=== PATIENT | female | born 1990 | race African-American/Black ===

== ENCOUNTER 2023-09-07 21:15 | Emergency (ER) | payer OTHER ==
--- NOTE | 2023-09-07 21:52 | ED ---
General Adult HPI - General Chief complaint: Chest Pain Stated complaint: Bi-Lateral Leg Swelling, Shortness of Breath Time Seen by Provider: 09/07/23 21:23 Source: patient, EMS Mode of arrival: EMS Limitations: no limitations - History of Present Illness Initial comments: This patient is a 33-year-old woman who arrives here to have evaluation from [facility]. The patient is complaining of bilateral leg swelling and shortness of breath. She does have history of previous cardiomyopathy and AICD placement. She is not able to well describe her cardiac history. The patient notes that things have been coming on over the past few da ys. She states that her legs are getting progressively more swollen and painful. The patient is able to lie flat. There is no productive cough. She has not had fevers or chills. No change in urination or bowel movements. Onset/Timin -: days(s) Location: left, right, lower extremity Quality: dull Consistency: constant Improves with: none Associated Symptoms: shortness of breath Treatments Prior to Arrival: none - Related Data Home Medications Medication Instructions Recorded Confirmed Acetaminophen Tab [Tylenol] 650 mg PO Q4H PRN 09/12/23 09/12/23 Albuterol Inhaler [Ventolin Hfa 1 - 2 puff INHALATION RT-Q4H PRN 09/12/23 09/12/23 Inhaler] Apixaban [Eliquis] 5 mg PO BID 09/12/23 09/12/23 Aspirin 81 mg PO DAILY 09/12/23 09/12/23 Atorvastatin Calcium [Lipitor] 40 mg PO HS 09/12/23 09/12/23 FLUoxetine HCL [PROzac] 20 mg PO DAILY 09/12/23 09/12/23 Fenofibrate [Lofibra] 54 mg PO HS 09/12/23 09/12/23 Ferrous Sulfate [Iron (65 MG 325 mg PO DAILY 09/12/23 09/12/23 Elemental)] Hydroxychloroquine Sulfate 200 mg PO BID 09/12/23 09/12/23 [Plaquenil] Levothyroxine Sodium [Synthroid] 25 mcg PO DAILY 09/12/23 09/12/23 Lidocaine 5% Oint [Xylocaine 5% 1 applic TOPICAL TID PRN 09/12/23 09/12/23 Oint] Lurasidone [Latuda] 40 mg PO DAILY 09/12/23 09/12/23 Magnesium Oxide [Magox 400] 400 mg PO BID 09/12/23 09/12/23 Melatonin 10 mg PO HS 09/12/23 09/12/23 Mirtazapine [Remeron] 15 mg PO HS 09/12/23 09/12/23 Multivitamins, Thera [Multivitamin 1 tab PO DAILY 09/12/23 09/12/23 (formulary)] Omeprazole 20 mg PO DAILY 09/12/23 09/12/23 allopurinoL 100 mg PO DAILY 09/12/23 09/12/23 busPIRone HCl [Buspar] 10 mg PO TID 09/12/23 09/12/23 guaiFENesin SYRUP 100MG/5ML 200 mg PO Q4H PRN 09/12/23 09/12/23 [Robitussin] ondansetron HCL [Zofran] 8 mg PO TID 09/12/23 09/12/23 Previous Rx's Medication Instructions Recorded Furosemide [Lasix] 40 mg PO DAILY 30 Days #30 tab 09/21/23 Metoprolol Succinate [Metoprolol 25 mg PO DAILY 30 Days #30 tab 09/21/23 Succinate ER] Nitroglycerin Sl Tabs [Nitrostat] 0.4 mg SUBLINGUAL Q5M PRN #25 tab 09/21/23 Allergies Allergy/AdvReac Type Severity Reaction Status Date / Time No Known Allergies Allergy Verified 09/12/23 20:10 Review of Systems ROS Statement: Those systems with pertinent positive or pertinent negative responses have been documented in the HPI. ROS Other: All systems not noted in ROS Statement are negative. Constitutional: Denies: fever, chills, weakness Respiratory: Reports: dyspnea. Denies: cough, wheezes, hemoptysis Cardiovascular: Reports: chest pain, dyspnea on exertion, edema. Denies: palpitations, orthopnea, syncope Gastrointestinal: Denies: abdominal pain, vomiting, diarrhea Genitourinary: Denies: dysuria, hematuria Musculoskeletal: Denies: back pain Skin: Denies: rash Neurological: Denies: headache, weakness, numbness Past Medical History Past Medical History: Hyperlipidemia, Renal Disease Additional Past Medical History / Comment(s): Gout, lupus, chf, uknown arrhythmia History of Any Multi-Drug Resistant Organisms: None Reported Past Surgical History: Section Past Psychological History: Anxiety, Bipolar Smoking Status: Current every day smoker Past Alcohol Use History: Abuse, Heavy Past Drug Use History: Cocaine General Exam Limitations: no limitations General appearance: alert, in no apparent distress Head exam: Present: atraumatic, normocephalic Eye exam: Present: normal appearance Neck exam: Present: normal inspection Respiratory exam: Present: normal lung sounds bilaterally. Absent: respiratory distress, wheezes, rales, rhonchi, stridor, accessory muscle use Cardiovascular Exam: Present: regular rate, normal rhythm, normal heart sounds. Absent: systolic murmur, diastolic murmur, rubs, gallop Extremities exam: Present: full ROM, normal capillary refill, pedal edema (There is bilateral edema above the knee), calf tenderness (Bilateral. Will ruthy Homans' sign). Absent: normal inspection Back exam: Present: normal inspection Neurological exam: Present: alert Skin exam: Present: warm, dry, intact, normal color. Absent: rash Course Vital Signs 09/07/23 09/07/23 09/07/23 21:21 23:00 23:30 Temperature 97.6 F Pulse Rate 105 H 96 93 Pulse Rate [ Jewelry Estimator ] Respiratory 22 18 16 Rate Blood Pressure 110/85 114/84 108/77 O2 Sat by Pulse 99 97 100 Oximetry 09/08/23 09/08/23 09/08/23 00:21 01:00 02:19 Temperature Pulse Rate 99 91 Pulse Rate [ 101 H Jewelry Estimator ] Respiratory 18 16 Rate Blood Pressure 107/86 110/82 O2 Sat by Pulse 100 100 Oximetry 09/08/23 09/08/23 09/08/23 03:33 04:53 06:37 Temperature Pulse Rate 96 91 95 Pulse Rate [ Jewelry Estimator ] Respiratory 16 16 18 Rate Blood Pressure 100/83 105/84 110/89 O2 Sat by Pulse 96 100 95 Oximetry EKG Findings - EKG Results: EKG: interpreted by ERMD, sinus rhythm, normal axis EKG shows: tachycardia (Rate 107 bpm) - Blocks, [place], Hypertrophy, ST Abn: QRS axis and voltage: low voltage (<0.5 MV total QRS and <1.0 MV in each precordial lead) - [place], Pacemaker, Normal: Myocardial infarction: anterior [place] (old age or indeterminate) Medical Decision Making - Medical Decision Making Patient had chest x-ray that I interpreted as negative for acute infiltrate, pneumothorax. There is cardiomegaly and probable mild CHF. There is AICD present. Patient has had duplex Doppler of the lower extremities that I interpreted as negative for acute DVT. Was pt. sent in by a medical professional or institution (, FAUSTO, SERVICE CENTER MANAGER, urgent care, hospital, or [place] health care facility...) When possible be specific @ -Yes sent from [facility] Did you speak to anyone other than the patient for history (EMS, parent, family, police, friend...)? What history was obtained from this source @ -[No] Did you review nursing and triage notes (agree or disagree)? Why? @ -[I reviewed and agree with nursing and triage notes] Were old charts reviewed (outside hosp., previous admission, EMS record, old EKG, old radiological studies, urgent care reports/EKG's, [place] health care facility records)? Report findings @ -[Transfer papers were reviewed] Differential Diagnosis (chest pain, altered mental status, abdominal pain women, abdominal pain men, vaginal bleeding, weakness, fever, dyspnea, syncope, headache, dizziness, GI bleed, back pain, seizure, CVA, palpatations, mental health, musculoskeletal)? @ -[Differential Chest Pain: Stable Angina, Unstable Angina, STEMI, NSTEMI Aortic Dissection, Pneumothorax, Musculoskeletal, Esophageal Spasm GERD, Cholecystitis, Pancreatitis, Zoster, this is not meant to be an all-inclusive list. EKG interpreted by me (3pts min.). @ -[I interpreted as above] X-rays interpreted by me (1pt min.). @ -[I interpreted as above CT interpreted by me (1pt min.). @ -[None done] U/S interpreted by me (1pt. min.). @ -[I interpreted as above What testing was considered but not performed or refused? (CT, X-rays, U/S, labs)? Why? @ -[None] What meds were considered but not given or refused? Why? @ -[None] Did you discuss the management of the patient with other professionals (professionals i.e. FAUSTO Milner, SERVICE CENTER MANAGER, lab, RT, psych nurse, social work program coordinator, supervisor hot dip tinning, teacher, correctional officer lieutenant, case sealer)? Give summary @ -[No] Was smoking cessation discussed for >3mins.? @ -[No] Was critical care preformed (if so, how long)? @ -[No] Were there social determinants of health that impacted care today? How? (Homelessness, low income, unemployed, alcoholism, drug addiction, transportation, low edu. Level, literacy, decrease access to med. care, chcf, rehab)? @ -[No] Was there de-escalation of care discussed even if they declined (Discuss DNR or withdrawal of care, Hospice)? DNR status @ -[No] What co-morbidities impacted this encounter? (DM, HTN, Smoking, COPD, CAD, Cancer, CVA, ARF, Chemo, Hep., AIDS, mental health diagnosis, sleep apnea, morbid obesity)? @ -[Hypertension, history of congestive heart failure, history of cardiomyopathy Was patient admitted / discharged? Hospital course, mention meds given and route, prescriptions, significant lab abnormalities, going to OR and other pertinent info. @ -[Patient is a 33-year-old woman with element of congestive heart failure. The patient is feeling better with treatment here and at this point stable for returning to skilled care facility. Discussed return parameters Undiagnosed new problem with uncertain prognosis? @ -[No] Drug Therapy requiring intensive monitoring for toxicity (Heparin, Nitro, Insulin, Cardizem)? @ -[No] Were any procedures done? @ -[No] Diagnosis/symptom? @ -[Acute exacerbation of congestive heart failure Acute, or Chronic, or Acute on Chronic? @ -[ Uncomplicated (without systemic symptoms) or Complicated (systemic symptoms)? @ -[default] Side effects of treatment? @ -[No] Exacerbation, Progression, or Severe Exacerbation? @ -[Exacerbation Poses a threat to life or bodily function? How? (Chest pain, [place], [place], pneumonia, PE, COPD, DKA, ARF, appy, cholecystitis, CVA, Diverticulitis, Homicidal, Suicidal, threat to staff... and all critical care pts) @ -[No] - Lab Data Result diagrams: 09/07/23 21:59 09/07/23 21:59 Lab Results 09/07/23 09/07/23 09/07/23 Range/Units 21:59 21:59 21:59 WBC 9.3 (3.8-10.6) k/uL RBC 4.95 (3.80-5.40) m/uL Hgb 11.7 (11.4-16.0) gm/dL Hct 41.6 (34.0-46.0) % MCV 84.2 (80.0-100.0) fL MCH 23.7 L (25.0-35.0) pg MCHC 28.2 L (31.0-37.0) g/dL RDW 20.5 H (11.5-15.5) % Plt Count 184 (150-450) k/uL MPV 9.5 Neutrophils % 60 % Lymphocytes % 31 % Monocytes % 4 % Eosinophils % 2 % Basophils % 1 % Neutrophils # 5.6 (1.3-7.7) k/uL Lymphocytes # 2.9 (1.0-4.8) k/uL Monocytes # 0.4 (0-1.0) k/uL Eosinophils # 0.2 (0-0.7) k/uL Basophils # 0.1 (0-0.2) k/uL Hypochromasia Marked Poikilocytosis Slight Anisocytosis Moderate Microcytosis Slight PT 12.9 H (10.0-12.5) sec INR 1.2 H (<1.2) APTT 24.9 (22.0-30.0) sec D-Dimer 1.25 H (<0.60) mg/L FEU Sodium 138 (137-145) mmol/L Potassium 4.6 (3.5-5.1) mmol/L Chloride 111 H (98-107) mmol/L Carbon Dioxide 18 L (22-30) mmol/L Anion Gap 9 mmol/L BUN 45 H (7-17) mg/dL Creatinine 1.32 H (0.52-1.04) mg/dL Est GFR (CKD-EPI)AfAm 61 (>60 ml/min/1.73 sqM) Est GFR (CKD-EPI)NonAf 53 (>60 ml/min/1.73 sqM) Glucose 136 H (74-99) mg/dL Plasma Lactic Acid Aristeo (0.7-2.0) mmol/L Calcium 8.0 L (8.4-10.2) mg/dL Magnesium 1.6 (1.6-2.3) mg/dL Total Bilirubin 0.6 (0.2-1.3) mg/dL AST 36 (14-36) U/L ALT 17 (4-34) U/L Alkaline Phosphatase 105 (38-126) U/L Troponin I (0.000-0.034) ng/mL NT-Pro-B Natriuret Pep 7760 pg/mL Total Protein 6.2 L (6.3-8.2) g/dL Albumin 2.4 L (3.5-5.0) g/dL Urine HCG, Qual (Not Detectd) 09/07/23 09/07/23 09/08/23 Range/Units 21:59 21:59 00:35 WBC (3.8-10.6) k/uL RBC (3.80-5.40) m/uL Hgb (11.4-16.0) gm/dL Hct (34.0-46.0) % MCV (80.0-100.0) fL MCH (25.0-35.0) pg MCHC (31.0-37.0) g/dL RDW (11.5-15.5) % Plt Count (150-450) k/uL MPV Neutrophils % % Lymphocytes % % Monocytes % % Eosinophils % % Basophils % % Neutrophils # (1.3-7.7) k/uL Lymphocytes # (1.0-4.8) k/uL Monocytes # (0-1.0) k/uL Eosinophils # (0-0.7) k/uL Basophils # (0-0.2) k/uL Hypochromasia Poikilocytosis Anisocytosis Microcytosis PT (10.0-12.5) sec INR (<1.2) APTT (22.0-30.0) sec D-Dimer (<0.60) mg/L FEU Sodium (137-145) mmol/L Potassium (3.5-5.1) mmol/L Chloride (98-107) mmol/L Carbon Dioxide (22-30) mmol/L Anion Gap mmol/L BUN (7-17) mg/dL Creatinine (0.52-1.04) mg/dL Est GFR (CKD-EPI)AfAm (>60 ml/min/1.73 sqM) Est GFR (CKD-EPI)NonAf (>60 ml/min/1.73 sqM) Glucose (74-99) mg/dL Plasma Lactic Acid Aristeo 1.4 (0.7-2.0) mmol/L Calcium (8.4-10.2) mg/dL Magnesium (1.6-2.3) mg/dL Total Bilirubin (0.2-1.3) mg/dL AST (14-36) U/L ALT (4-34) U/L Alkaline Phosphatase (38-126) U/L Troponin I 0.013 (0.000-0.034) ng/mL NT-Pro-B Natriuret Pep pg/mL Total Protein (6.3-8.2) g/dL Albumin (3.5-5.0) g/dL Urine HCG, Qual Not Detected (Not Detectd) Disposition Clinical Impression: Congestive heart failure Disposition: HOME SELF-CARE Condition: Good Instructions (If sedation given, give patient instructions): Heart Failure (ER) Is patient prescribed a controlled substance at d/c from ED?: No Referrals: None,Stated [Primary Care Provider] - 1-2 days
[2023-09-07 22:08] LABS: Anisocytosis Moderate; Basophils # (A) 0.1 k/uL (0-0.2); Basophils % (A) 1 %; Eosinophils # (A) 0.2 k/uL (0-0.7); Eosinophils % (A) 2 %; HCT 41.6 % (34.0-46.0); HGB 11.7 gm/dL (11.4-16.0); Hypochromasia Marked; Lymphocytes # (A) 2.9 k/uL (1.0-4.8); Lymphocytes % (A) 31 %; MCH 23.7 pg (25.0-35.0); MCHC 28.2 g/dL (31.0-37.0); MCV 84.2 fL (80.0-100.0); Mean Platelet Volume 9.5; Microcytosis Slight; Monocytes # (A) 0.4 k/uL (0-1.0); Monocytes % (A) 4 %; Neutrophils # (A) 5.6 k/uL (1.3-7.7); Neutrophils % (A) 60 %; Platelet Count 184 k/uL (150-450); Poikilocytosis Slight; RBC 4.95 m/uL (3.80-5.40); RDW 20.5 % (11.5-15.5); WBC 9.3 k/uL (3.8-10.6)
[2023-09-07 22:18] LABS: ALT 17 U/L (4-34); AST 36 U/L (14-36); African American GFR (CKD) 61 (>60 ml/min/1.73 sqM); Albumin 2.4 g/dL (3.5-5.0); Alkaline Phosphatase 105 U/L (38-126); Anion Gap 9 mmol/L; Blood Urea Nitrogen 45 mg/dL (7-17); Carbon Dioxide 18 mmol/L (22-30); Chloride 111 mmol/L (98-107); Glucose 136 mg/dL (74-99); Magnesium 1.6 mg/dL (1.6-2.3); Non-African American GFR(CKD) 53 (>60 ml/min/1.73 sqM); Potassium 4.6 mmol/L (3.5-5.1); Sodium 138 mmol/L (137-145); Total Bilirubin 0.6 mg/dL (0.2-1.3); Total Protein 6.2 g/dL (6.3-8.2)
[2023-09-07 22:21] LABS: INR 1.2 (<1.2)
[2023-09-07 22:22] LABS: Partial Thromboplastin Time 24.9 sec (22.0-30.0); Prothrombin Time 12.9 sec (10.0-12.5)
[2023-09-07 22:27] LABS: NT-Pro-B-Type Natriuretic Pept 7760 pg/mL
[2023-09-07 22:40] VITALS: TEMP 97.6
[2023-09-07] MEDS: KETOROLAC 15 MG/ML 1 ML VIAL IVP STA (22:49)
--- NOTE | 2023-09-07 22:58 | XR ---
EXAM: XR Chest, 2 Views CLINICAL HISTORY: ITS.REASON XR Reason: difficulty breathing TECHNIQUE: Frontal and lateral views of the chest. COMPARISON: No relevant prior studies available. FINDINGS: Lungs: Mild right basilar opacities. Pleural space: Small pleural effusions. No pneumothorax. Heart: Cardiomegaly. Vascular congestion. Bones/joints: No acute fracture. No dislocation. Tubes, lines and devices: Left lateral chest wall battery pack with lead extending into the midline anterior chest wall. IMPRESSION: 1. Cardiomegaly and vascular congestion, possibly mild edema. 2. Small pleural effusions. 3. Mild right basilar opacities, most likely atelectasis.
[2023-09-07] MEDS: FUROSEMIDE 10 MG/ML 4 ML VIAL IV STA (23:35)
--- NOTE | 2023-09-07 23:50 | US ---
EXAM: US Duplex Bilateral Lower Extremities Veins CLINICAL HISTORY: ITS.REASON US Reason: Leg pain, possible PE TECHNIQUE: Real-time duplex ultrasound scan of the bilateral lower extremity veins integrating B-mode two-dimensional vascular structure, Doppler spectral analysis, color flow Doppler imaging and compression. COMPARISON: No relevant prior studies available. FINDINGS: Right deep veins: Unremarkable. No DVT in the right common femoral, femoral, proximal deep femoral or popliteal veins. The veins demonstrate normal color flow, are normally compressible, with normal phasic flow and/or augmentation response. Right superficial veins: Unremarkable. No thrombus in the visualized right great saphenous vein. Left deep veins: Unremarkable. No DVT in the left common femoral, femoral, proximal deep femoral or popliteal veins. The veins demonstrate normal color flow, are normally compressible, with normal phasic flow and/or augmentation response. Left superficial veins: Unremarkable. No thrombus in the visualized left great saphenous vein. Soft tissues: Bilateral soft tissue edema. IMPRESSION: 1. No acute DVT. Bilateral soft tissue edema.
--- NOTE | 2023-09-08 01:43 | CT ---
EXAM: CT Angiography Chest With Intravenous Contrast CLINICAL HISTORY: ITS.REASON CT Reason: chest pain, possible PE TECHNIQUE: Axial computed tomographic angiography images of the chest with intravenous contrast. CTDI is 30.6 mGy and DLP is 345 mGy-cm. This CT exam was performed using one or more of the following dose reduction techniques: automated exposure control, adjustment of the mA and/or kV according to patient size, and/or use of iterative reconstruction technique. MIP reconstructed images were created and reviewed. COMPARISON: No relevant prior studies available. FINDINGS: Limitations: Motion artifact. Pulmonary arteries: Adequate pulmonary artery opacification. Enlarged main pulmonary artery consistent with pulmonary arterial hypertension. No evidence of pulmonary embolism. Aorta: No acute findings. No aortic aneurysm. Lungs: Bilateral septal thickening and alveolar ground-glass lung attenuation. No consolidation. Pleural space: Small pleural effusions. No pneumothorax. Heart: Cardiomegaly. Pericardial effusion measuring 13 mm. No RV strain. No coronary artery atherosclerosis. Bones/joints: No acute fracture. No dislocation. Soft tissues: Anasarca. Lymph nodes: Unremarkable. No adenopathy. Tubes, lines and devices: Generator device/battery pack implanted in the left lateral abdominal wall with lead extending into the midline presternal soft tissues. IMPRESSION: 1. No evidence of pulmonary embolism. 2. Cardiomegaly and 13 mm pericardial effusion. 3. Pulmonary edema and small pleural effusions. 4. Reflux of contrast into the hepatic veins consistent with elevated right heart pressure. 5. Anasarca.
[2023-09-08 07:07] VITALS: BP 110/89; PULSE 95; RESP 18
== END 2023-09-08 06:57 | disposition home or self-care (01) ==
LOC: EC 21:15
DX: I50.9 Heart failure, unspecified (principal); I25.2 Old myocardial infarction; F17.200 Nicotine dependence, unspecified, uncomplicated; F14.90 Cocaine use, unspecified, uncomplicated
CPT/HCPCS: 36415; 93005; 85379; 83880; 80053; 83605; 83735; 84484; 85025; 85610; 85730; 81025; 71046; 93970; 71275; 99285; 96374; 96375; J1940; J1885; Q9967

== ENCOUNTER 2023-09-12 17:55 | Inpatient (IN) | payer OTHER ==
--- NOTE | 2023-09-12 19:07 | ED ---
General Adult HPI - General Chief complaint: Chest Pain Stated complaint: Chest pain Time Seen by Provider: 09/12/23 18:40 Source: patient, RN notes reviewed, old records reviewed Mode of arrival: EMS Limitations: no limitations - History of Present Illness Initial comments: This is a 33-year-old female who presents to the emergency department from [facility] for alcohol and cocaine abuse. Patient comes in today because for the last 2 days she has been having some chest pain some shortness of breath and complains of epigastric abdominal pain occasionally. Patient states the pain does come and go but has been more persistent today and since she has a history of congestive heart failure and she had a pericardial effusion on her last visit she came back to the emergency department. Patient denies any fever or chills. Patient denies any vomiting or diarrhea. - Related Data Home Medications Medication Instructions Recorded Confirmed Acetaminophen Tab [Tylenol] 650 mg PO Q4H PRN 09/12/23 09/12/23 Albuterol Inhaler [Ventolin Hfa 1 - 2 puff INHALATION RT-Q4H PRN 09/12/23 09/12/23 Inhaler] Apixaban [Eliquis] 5 mg PO BID 09/12/23 09/12/23 Aspirin 81 mg PO DAILY 09/12/23 09/12/23 Atorvastatin Calcium [Lipitor] 40 mg PO HS 09/12/23 09/12/23 FLUoxetine HCL [PROzac] 20 mg PO DAILY 09/12/23 09/12/23 Fenofibrate [Lofibra] 54 mg PO HS 09/12/23 09/12/23 Ferrous Sulfate [Feosol] 325 mg PO DAILY 09/12/23 09/12/23 Furosemide [Lasix] 40 mg PO DAILY 09/12/23 09/12/23 Hydroxychloroquine Sulfate 200 mg PO BID 09/12/23 09/12/23 [Plaquenil] Levothyroxine Sodium [Synthroid] 25 mcg PO DAILY 09/12/23 09/12/23 Lidocaine 5% Oint [Xylocaine 5% 1 applic TOPICAL TID PRN 09/12/23 09/12/23 Oint] Lurasidone [Latuda] 40 mg PO DAILY 09/12/23 09/12/23 Magnesium Oxide [Magox 400] 400 mg PO BID 09/12/23 09/12/23 Melatonin 10 mg PO HS 09/12/23 09/12/23 Mirtazapine [Remeron] 15 mg PO HS 09/12/23 09/12/23 Multivitamins, Thera [Multivitamin 1 tab PO DAILY 09/12/23 09/12/23 (formulary)] Omeprazole 20 mg PO DAILY 09/12/23 09/12/23 allopurinoL 100 mg PO DAILY 09/12/23 09/12/23 busPIRone HCl [Buspar] 10 mg PO TID 09/12/23 09/12/23 guaiFENesin SYRUP 100MG/5ML 200 mg PO Q4H PRN 09/12/23 09/12/23 [Robitussin] lisinopriL [Prinivil] 10 mg PO DAILY 09/12/23 09/12/23 ondansetron HCL [Zofran] 8 mg PO TID 09/12/23 09/12/23 Allergies Allergy/AdvReac Type Severity Reaction Status Date / Time No Known Allergies Allergy Verified 09/12/23 20:10 Review of Systems ROS Statement: Those systems with pertinent positive or pertinent negative responses have been documented in the HPI. ROS Other: All systems not noted in ROS Statement are negative. Past Medical History Past Medical History: Hyperlipidemia, Renal Disease Additional Past Medical History / Comment(s): Gout, lupus, chf, uknown arrhythmi a History of Any Multi-Drug Resistant Organisms: None Reported Past Surgical History: Section, Pacemaker Past Psychological History: Anxiety, Bipolar Smoking Status: Current every day smoker Past Alcohol Use History: Abuse, Heavy Past Drug Use History: Cocaine General Exam - General Exam Comments Initial Comments: GENERAL: Patient is well-developed and well-nourished. Patient is nontoxic and well- hydrated and is in mild distress. ENT: Neck is soft and supple. No significant lymphadenopathy is noted. Oropharynx is clear. Moist mucous membranes. Neck has full range of motion without eliciting any pain. EYES: The sclera were anicteric and conjunctiva were pink and moist. Extraocular movements were intact and pupils were equal round and reactive to light. Eyelids were unremarkable. PULMONARY: Unlabored respirations. Patient has decreased breath sounds in the bases CARDIOVASCULAR: There is a regular rate and rhythm without any murmurs gallops or rubs. ABDOMEN: Soft and nontender with normal bowel sounds. SKIN: Skin is clear with no lesions or rashes and otherwise unremarkable. NEUROLOGIC: Patient is alert and oriented x3. Cranial nerves II through XII are grossly intact. Motor and sensory are also intact. Normal speech, volume and content. Symmetrical smile. MUSCULOSKELETAL: Normal extremities with adequate strength and full range of motion. Patient has 2+ edema bilaterally on her legs LYMPHATICS: No significant lymphadenopathy is noted PSYCHIATRIC: Normal psychiatric evaluation. Limitations: no limitations Course Vital Signs 09/12/23 09/12/23 17:58 20:21 Temperature 98 F 98.2 F Pulse Rate 118 H 112 H Respiratory 18 16 Rate Blood Pressure 113/82 121/88 O2 Sat by Pulse 98 99 Oximetry Medical Decision Making - Medical Decision Making EKG is interpreted by myself. EKG shows a sinus tachycardia at 113 bpm OR interval 154 QRS is 81 QT interval is 326 QTc is 393. Patient's EKG shows no ST segment elevation or depression. Was pt. sent in by a medical professional or institution (, PA, MEDICAID ANALYST, urgent care, hospital, or assisted...) When possible be specific @ -Patient was sent in by [facility] Did you speak to anyone other than the patient for history (EMS, parent, family, police, friend...)? What history was obtained from this source @ -No Did you review nursing and triage notes (agree or disagree)? Why? @ -I reviewed and agree with nursing and triage notes Were old charts reviewed (outside hosp., previous admission, EMS record, old EKG, old radiological studies, urgent care reports/EKG's, assisted records)? Report findings @ -Patient was in the emergency department a few days ago I reviewed the CTA as well as all the lab work and chest x-ray. Differential Diagnosis (chest pain, altered mental status, abdominal pain women, abdominal pain men, vaginal bleeding, weakness, fever, dyspnea, syncope, headache, dizziness, GI bleed, back pain, seizure, CVA, palpatations, mental health, musculoskeletal)? @ -MDM differential Stable Angina, Unstable Angina, STEMI, NSTEMI Aortic Dissection, Pneumothorax, Musculoskeletal, Esophageal Spasm GERD, Cholecystitis, Pancreatitis, Zoster, this is not meant to be an all-inclusive list. EKG interpreted by me (3pts min.). @ -As above X-rays interpreted by me (1pt min.). @ -None done CT interpreted by me (1pt min.). @ -None done U/S interpreted by me (1pt. min.). @ -None done What testing was considered but not performed or refused? (CT, X-rays, U/S, labs)? Why? @ -None What meds were considered but not given or refused? Why? @ -None Did you discuss the management of the patient with other professionals (professionals i.e. , PA, MEDICAID ANALYST, lab, RT, psych nurse, high school social studies tutor, animal cytologist, teacher, accounting officer, pillowcase folder)? Give summary @ -I spoke with [place] emergency department physicians and they agreed to admit the patient Was smoking cessation discussed for >3mins.? @ -No Was critical care preformed (if so, how long)? @ -No Were there social determinants of health that impacted care today? How? (Homelessness, low income, unemployed, alcoholism, drug addiction, transportation, low edu. Level, literacy, decrease access to med. care, intermediate, rehab)? @ -No Was there de-escalation of care discussed even if they declined (Discuss DNR or withdrawal of care, Hospice)? DNR status @ -No What co-morbidities impacted this encounter? (DM, HTN, Smoking, COPD, CAD, Cancer, CVA, ARF, Chemo, Hep., AIDS, mental health diagnosis, sleep apnea, morbid obesity)? @ -None Was patient admitted / discharged? Hospital course, mention meds given and route, prescriptions, significant lab abnormalities, going to OR and other pertinent info. @ -Patient's lab work came back magnesium was slightly low troponin was normal. Patient had elevated D-dimer but I opted not to do a CT scan because she had one a few days ago. [facility] physician agreed admit the patient admit the patient I ordered an echo and consult cardiology Undiagnosed new problem with uncertain prognosis? @ -No Drug Therapy requiring intensive monitoring for toxicity (Heparin, Nitro, Insulin, Cardizem)? @ -No Were any procedures done? @ -No Diagnosis/symptom? @ -Chest pain Acute, or Chronic, or Acute on Chronic? @ -Acute Uncomplicated (without systemic symptoms) or Complicated (systemic symptoms)? @ -Complicated Side effects of treatment? @ -No Exacerbation, Progression, or Severe Exacerbation? @ -No Poses a threat to life or bodily function? How? (Chest pain, USA, ID, pneumonia, PE, COPD, DKA, ARF, appy, cholecystitis, CVA, Diverticulitis, Homicidal, Suicidal, threat to staff... and all critical care pts) @ -Yes this could lead to an ID and endorgan dysfunction Diagnosis/symptom? @ -Hypomagnesemia Acute, or Chronic, or Acute on Chronic? @ -Acute Uncomplicated (without systemic symptoms) or Complicated (systemic symptoms)? @ -Uncomplicated Side effects of treatment? @ -None Exacerbation, Progression, or Severe Exacerbation] @ -No Poses a threat to life or bodily function? @ -No - Lab Data Result diagrams: 09/12/23 18:57 09/12/23 20:21 Lab Results 09/12/23 09/12/23 09/12/23 Range/Units 18:57 18:57 18:57 WBC 11.4 H (3.8-10.6) k/uL RBC 5.56 H (3.80-5.40) m/uL Hgb 13.2 (11.4-16.0) gm/dL Hct 47.4 H (34.0-46.0) % MCV 85.3 (80.0-100.0) fL MCH 23.8 L (25.0-35.0) pg MCHC 27.9 L (31.0-37.0) g/dL RDW 20.8 H (11.5-15.5) % Plt Count 170 (150-450) k/uL MPV 10.3 Neutrophils % 68 % Lymphocytes % 22 % Monocytes % 5 % Eosinophils % 2 % Basophils % 1 % Neutrophils # 7.8 H (1.3-7.7) k/uL Lymphocytes # 2.5 (1.0-4.8) k/uL Monocytes # 0.6 (0-1.0) k/uL Eosinophils # 0.2 (0-0.7) k/uL Basophils # 0.1 (0-0.2) k/uL Hypochromasia Marked Poikilocytosis Slight Anisocytosis Moderate Microcytosis Slight PT 12.7 H (10.0-12.5) sec INR 1.2 H (<1.2) APTT 22.9 (22.0-30.0) sec D-Dimer 1.46 H (<0.60) mg/L FEU Sodium (137-145) mmol/L Potassium (3.5-5.1) mmol/L Chloride (98-107) mmol/L Carbon Dioxide (22-30) mmol/L Anion Gap mmol/L BUN (7-17) mg/dL Creatinine (0.52-1.04) mg/dL Est GFR (CKD-EPI)AfAm (>60 ml/min/1.73 sqM) Est GFR (CKD-EPI)NonAf (>60 ml/min/1.73 sqM) Glucose (74-99) mg/dL Calcium (8.4-10.2) mg/dL Magnesium (1.6-2.3) mg/dL Total Bilirubin (0.2-1.3) mg/dL AST (14-36) U/L ALT (4-34) U/L Alkaline Phosphatase (38-126) U/L Troponin I (0.000-0.034) ng/mL Total Protein (6.3-8.2) g/dL Albumin (3.5-5.0) g/dL Lipase (23-300) U/L 09/12/23 09/12/23 Range/Units 20:21 20:21 WBC (3.8-10.6) k/uL RBC (3.80-5.40) m/uL Hgb (11.4-16.0) gm/dL Hct (34.0-46.0) % MCV (80.0-100.0) fL MCH (25.0-35.0) pg MCHC (31.0-37.0) g/dL RDW (11.5-15.5) % Plt Count (150-450) k/uL MPV Neutrophils % % Lymphocytes % % Monocytes % % Eosinophils % % Basophils % % Neutrophils # (1.3-7.7) k/uL Lymphocytes # (1.0-4.8) k/uL Monocytes # (0-1.0) k/uL Eosinophils # (0-0.7) k/uL Basophils # (0-0.2) k/uL Hypochromasia Poikilocytosis Anisocytosis Microcytosis PT (10.0-12.5) sec INR (<1.2) APTT (22.0-30.0) sec D-Dimer (<0.60) mg/L FEU Sodium 136 L (137-145) mmol/L Potassium 4.6 (3.5-5.1) mmol/L Chloride 112 H (98-107) mmol/L Carbon Dioxide 17 L (22-30) mmol/L Anion Gap 7 mmol/L BUN 37 H (7-17) mg/dL Creatinine 1.26 H (0.52-1.04) mg/dL Est GFR (CKD-EPI)AfAm 65 (>60 ml/min/1.73 sqM) Est GFR (CKD-EPI)NonAf 56 (>60 ml/min/1.73 sqM) Glucose 118 H (74-99) mg/dL Calcium 8.3 L (8.4-10.2) mg/dL Magnesium 1.5 L (1.6-2.3) mg/dL Total Bilirubin 0.9 (0.2-1.3) mg/dL AST 42 H (14-36) U/L ALT 19 (4-34) U/L Alkaline Phosphatase 101 (38-126) U/L Troponin I 0.015 (0.000-0.034) ng/mL Total Protein 6.2 L (6.3-8.2) g/dL Albumin 2.4 L (3.5-5.0) g/dL Lipase 130 (23-300) U/L Disposition Clinical Impression: Chest pain, Hypomagnesemia Disposition: ADMITTED IP TO THIS [facility] Referrals: None,Stated [Primary Care Provider] - 1-2 days Time of Disposition: 21:24
[2023-09-12 19:15] LABS: Anisocytosis Moderate; Basophils # (A) 0.1 k/uL (0-0.2); Basophils % (A) 1 %; Eosinophils # (A) 0.2 k/uL (0-0.7); Eosinophils % (A) 2 %; HCT 47.4 % (34.0-46.0); HGB 13.2 gm/dL (11.4-16.0); Hypochromasia Marked; Lymphocytes # (A) 2.5 k/uL (1.0-4.8); Lymphocytes % (A) 22 %; MCH 23.8 pg (25.0-35.0); MCHC 27.9 g/dL (31.0-37.0); MCV 85.3 fL (80.0-100.0); Mean Platelet Volume 10.3; Microcytosis Slight; Monocytes # (A) 0.6 k/uL (0-1.0); Monocytes % (A) 5 %; Neutrophils # (A) 7.8 k/uL (1.3-7.7); Neutrophils % (A) 68 %; Platelet Count 170 k/uL (150-450); Poikilocytosis Slight; RBC 5.56 m/uL (3.80-5.40); RDW 20.8 % (11.5-15.5); WBC 11.4 k/uL (3.8-10.6)
[2023-09-12 19:26] LABS: INR 1.2 (<1.2); Partial Thromboplastin Time 22.9 sec (22.0-30.0); Prothrombin Time 12.7 sec (10.0-12.5)
[2023-09-12 20:42] LABS: ALT 19 U/L (4-34); African American GFR (CKD) 65 (>60 ml/min/1.73 sqM); Albumin 2.4 g/dL (3.5-5.0); Anion Gap 7 mmol/L; Blood Urea Nitrogen 37 mg/dL (7-17); Calcium 8.3 mg/dL (8.4-10.2); Carbon Dioxide 17 mmol/L (22-30); Chloride 112 mmol/L (98-107); Glucose 118 mg/dL (74-99); Lipase 130 U/L (23-300); Non-African American GFR(CKD) 56 (>60 ml/min/1.73 sqM); Sodium 136 mmol/L (137-145); Total Bilirubin 0.9 mg/dL (0.2-1.3); Total Protein 6.2 g/dL (6.3-8.2)
[2023-09-12 20:47] LABS: AST 42 U/L (14-36); Alkaline Phosphatase 101 U/L (38-126); Potassium 4.6 mmol/L (3.5-5.1)
[2023-09-12 20:48] LABS: Magnesium 1.5 mg/dL (1.6-2.3)
[2023-09-12] MEDS ORDERED: NITROGLYCERIN SL TABS 0.4 MG TAB SUBLINGUAL PRN (21:24)
--- NOTE | 2023-09-12 22:10 | XR ---
EXAMINATION TYPE: XR chest 2V DATE OF EXAM: 09/12/2023 COMPARISON: 09/07/2023 HISTORY: Chest pain TECHNIQUE: Frontal and lateral views of the chest are obtained. FINDINGS: There is marked cardiomegaly and a defibrillator device.. The lungs are clear. There is no pleural effusion or pneumothorax. Pulmonary vasculature does not appear congested. IMPRESSION: 1. Stable marked cardiomegaly. 2. No acute cardiopulmonary disease.
[2023-09-12] MEDS: MAGNESIUM SULFATE-D5W PMX 1 GM in DEXTROSE/WATER 1 100ML.BAG IVPB ONE (22:34)
[2023-09-12] MEDS: traMADol 50 MG TAB PO STA (22:34)
[2023-09-13] MEDS: NITROGLYCERIN OINT 1 INCH/GM PACKET TOPICAL SCH (00:09)
--- NOTE | 2023-09-13 00:57 | P.HPIM ---
History of Present Illness H&P Date: 09/12/23 Patient is a 33-year-old female with a PMH of CHF (unknown type), alcohol abuse, SLE, polysubstance abuse, A-fib on Eliquis, hypertension, hyperlipidemia, asthma, hypothyroidism, currently experiencing homelessness who was sent to the emergency room from [place] where the patient had presented for alcohol and cocaine abuse. The patient has been staying at [facility] since 08/20 and had also presented to the emergency room on 09/06 due to lower extremity swelling and shortness of breath. She was initially discharged back to [place] but now returns due to persistent shortness of breath. Reports following with multiple facilities but notes that she has had a difficult time following up with her physicians due to her currently being homeless. Reports intermittent substernal chest pain, somewhat pleuritic with some tenderness, occurring over the last 2 to 3 days, nonradiating, with no alleviating or exacerbating features, 7 out of 10 at maximal intensity. Does report lower extremity swelling with some orthopnea. Also reports mild diffuse abdominal discomfort intermittently over the past several weeks. Denies fever, chills, cough. Chest x-ray in the emergency room revealed marked cardiomegaly with no acute abnormalities with EKG showing sinus tachycardia at 113 bpm with diffuse T wave flattening as reviewed by me. Laboratory evaluation was remarkable for leukocytosis of 11.4, D-dimer 1.46, BUN 37, creatinine 1.26, glucose 118, calcium 8.3, magnesium 1.5, AST 42, ALT 19, troponin 0.015, proBNP 9100. ED documentation reviewed and case discussed with ED provider. Review of systems: Pertinent positives and negatives as discussed in HPI, a complete review of sys tems was performed and all other systems are negative. Physical examination: Vital signs reviewed General: non toxic, no distress, appears older than stated age age, obese Derm: no unusual rashes/lesions, warm Head: atraumatic, normocephalic, symmetric Eyes: EOMI, no lid lag, anicteric sclera, pupils equal round reactive to light ENT: Nose and ears atraumatic Neck: No cervical lymphadenopathy, trachea midline, supple Mouth: no lip lesion, mucus membranes moist Cardiovascular: S1S2 reg, no murmur, positive dorsalis pedis pulse bilateral, 2+ bilateral lower extremity pitting edema Lungs: CTA bilateral, no rhonchi, no rales, no accessory muscle use Abdominal: soft, nontender to palpation, no guarding Ext: muscle strength 5 out of 5 in all 4 extremities grossly, no gross muscle atrophy, no contractures, Neuro: CN II-XI grossly intact, no gross focal neuro deficits Psych: Alert, oriented, appropriate affect Assessment: Chest pain, rule out ACS vs PE Acute CHF exacerbation Kidney disease acute versus chronic Hypomagnesemia Leukocytosis, suspect due to acute stressor with no signs of active infection at this time Chronic conditions: A-fib, hypertension, hyperlipidemia, hypothyroidism, alcohol abuse, SLE Imaging: Chest x-ray in the emergency room revealed marked cardiomegaly with no acute abnormalities with EKG showing sinus tachycardia at 113 bpm with diffuse T wave flattening as reviewed by me. Data Review: Laboratory evaluation was remarkable for leukocytosis of 11.4, D-dimer 1.46, BUN 37, creatinine 1.26, glucose 118, calcium 8.3, magnesium 1.5, AST 42, ALT 19, troponin 0.015, proBNP 9100. Plan: Cardiology consulted Cardiac monitoring Obtain echocardiogram Initiate Lasix 40 mg IV every 12 hourly Intake and output Daily weights Monitor BMP Obtain VQ scan to rule out PE Replace magnesium and monitor Resume home medications including Eliquis DVT prophylaxis: Eliquis The patient is admitted with an anticipated less than 2 midnight stay for evaluation of Chest pain CODE STATUS: Full Code Discussed with: Patient Anticipated discharge place: Home Past Medical History Past Medical History: Hyperlipidemia, Renal Disease Additional Past Medical History / Comment(s): Gout, lupus, chf, uknown arrhyt hmia History of Any Multi-Drug Resistant Organisms: None Reported Past Surgical History: Section, Pacemaker Past Psychological History: Anxiety, Bipolar Smoking Status: Current every day smoker Past Alcohol Use History: Abuse, Heavy Past Drug Use History: Cocaine Medications and Allergies Home Medications Medication Instructions Recorded Confirmed Type Acetaminophen Tab [Tylenol] 650 mg PO Q4H PRN 09/12/23 09/12/23 History Albuterol Inhaler [Ventolin Hfa 1 - 2 puff INHALATION RT-Q4H PRN 09/12/23 09/12/23 History Inhaler] Apixaban [Eliquis] 5 mg PO BID 09/12/23 09/12/23 History Aspirin 81 mg PO DAILY 09/12/23 09/12/23 History Atorvastatin Calcium [Lipitor] 40 mg PO HS 09/12/23 09/12/23 History FLUoxetine HCL [PROzac] 20 mg PO DAILY 09/12/23 09/12/23 History Fenofibrate [Lofibra] 54 mg PO HS 09/12/23 09/12/23 History Ferrous Sulfate [Feosol] 325 mg PO DAILY 09/12/23 09/12/23 History Furosemide [Lasix] 40 mg PO DAILY 09/12/23 09/12/23 History Hydroxychloroquine Sulfate 200 mg PO BID 09/12/23 09/12/23 History [Plaquenil] Levothyroxine Sodium [Synthroid] 25 mcg PO DAILY 09/12/23 09/12/23 History Lidocaine 5% Oint [Xylocaine 5% 1 applic TOPICAL TID PRN 09/12/23 09/12/23 History Oint] Lurasidone [Latuda] 40 mg PO DAILY 09/12/23 09/12/23 History Magnesium Oxide [Magox 400] 400 mg PO BID 09/12/23 09/12/23 History Melatonin 10 mg PO HS 09/12/23 09/12/23 History Mirtazapine [Remeron] 15 mg PO HS 09/12/23 09/12/23 History Multivitamins, Thera [Multivitamin 1 tab PO DAILY 09/12/23 09/12/23 History (formulary)] Omeprazole 20 mg PO DAILY 09/12/23 09/12/23 History allopurinoL 100 mg PO DAILY 09/12/23 09/12/23 History busPIRone HCl [Buspar] 10 mg PO TID 09/12/23 09/12/23 History guaiFENesin SYRUP 100MG/5ML 200 mg PO Q4H PRN 09/12/23 09/12/23 History [Robitussin] lisinopriL [Prinivil] 10 mg PO DAILY 09/12/23 09/12/23 History ondansetron HCL [Zofran] 8 mg PO TID 09/12/23 09/12/23 History Allergies Allergy/AdvReac Type Severity Reaction Status Date / Time No Known Allergies Allergy Verified 09/12/23 20:10 Physical Exam Vitals: Vital Signs Temp Pulse Resp BP Pulse Ox 09/12/23 23:23 97.8 F 105 H 20 119/90 96 09/12/23 20:21 98.2 F 112 H 16 121/88 99 09/12/23 17:58 98 F 118 H 18 113/82 98 Intake and Output 09/12/23 09/12/23 09/13/23 14:59 22:59 06:59 Other: Weight 87.09 kg Results CBC & Chem 7: 09/12/23 18:57 09/12/23 20:21 Labs: Abnormal Lab Results - Last 24 Hours (Table) 09/12/23 09/12/23 09/12/23 Range/Units 18:57 18:57 18:57 WBC 11.4 H (3.8-10.6) k/uL RBC 5.56 H (3.80-5.40) m/uL Hct 47.4 H (34.0-46.0) % MCH 23.8 L (25.0-35.0) pg MCHC 27.9 L (31.0-37.0) g/dL RDW 20.8 H (11.5-15.5) % Neutrophils # 7.8 H (1.3-7.7) k/uL PT 12.7 H (10.0-12.5) sec INR 1.2 H (<1.2) D-Dimer 1.46 H (<0.60) mg/L FEU Sodium (137-145) mmol/L Chloride (98-107) mmol/L Carbon Dioxide (22-30) mmol/L BUN (7-17) mg/dL Creatinine (0.52-1.04) mg/dL Glucose (74-99) mg/dL Calcium (8.4-10.2) mg/dL Magnesium (1.6-2.3) mg/dL AST (14-36) U/L Total Protein (6.3-8.2) g/dL Albumin (3.5-5.0) g/dL 09/12/23 Range/Units 20:21 WBC (3.8-10.6) k/uL RBC (3.80-5.40) m/uL Hct (34.0-46.0) % MCH (25.0-35.0) pg MCHC (31.0-37.0) g/dL RDW (11.5-15.5) % Neutrophils # (1.3-7.7) k/uL PT (10.0-12.5) sec INR (<1.2) D-Dimer (<0.60) mg/L FEU Sodium 136 L (137-145) mmol/L Chloride 112 H (98-107) mmol/L Carbon Dioxide 17 L (22-30) mmol/L BUN 37 H (7-17) mg/dL Creatinine 1.26 H (0.52-1.04) mg/dL Glucose 118 H (74-99) mg/dL Calcium 8.3 L (8.4-10.2) mg/dL Magnesium 1.5 L (1.6-2.3) mg/dL AST 42 H (14-36) U/L Total Protein 6.2 L (6.3-8.2) g/dL Albumin 2.4 L (3.5-5.0) g/dL
[2023-09-13] MEDS: APIXABAN 5 MG TAB PO SCH (02:01)
[2023-09-13] MEDS: traMADol 50 MG TAB PO STA ×2 (03:54→20:53)
[2023-09-13 04:05] LABS: African American GFR (CKD) 71 (>60 ml/min/1.73 sqM); Anion Gap 6 mmol/L; Blood Urea Nitrogen 36 mg/dL (7-17); Calcium 8.2 mg/dL (8.4-10.2); Carbon Dioxide 19 mmol/L (22-30); Chloride 110 mmol/L (98-107); Glucose 112 mg/dL (74-99); Non-African American GFR(CKD) 61 (>60 ml/min/1.73 sqM); Potassium 4.1 mmol/L (3.5-5.1); Sodium 135 mmol/L (137-145)
--- NOTE | 2023-09-13 08:14 | NM ---
EXAMINATION TYPE: NM pul vent and perfuse DATE OF EXAM: 09/13/2023 CLINICAL INDICATION: Female, 33 years old with history of r/o PE; COMPARISON: Radiograph 09/12/2023 TECHNIQUE: Utilizing inhalation of 37.4 mCi Tc 99m DTPA aerosol and intravenous injection of 5.3 mCi of Tc 99m MAA, ventilation and perfusion images are acquired post injection in multiple projections. FINDINGS: Enlarged cardiac silhouette. No mismatch perfusion defect is seen. Additional photopenia related to t he patient's left chest wall AICD generator. IMPRESSION: Very low probability for pulmonary embolus. Cardiomegaly.
--- NOTE | 2023-09-13 08:18 | P.CRDCN ---
History of Present Illness Consult date: 09/13/23 Chief complaint: Shortness of breath History of present illness: The patient is a pleasant 33-year-old -[place] female patient with a pas t medical history significant for history of cocaine use and history of alcohol use currently she is in the rehabilitation facility last time she drank alcohol was about 30 days ago as well as history of cardiomyopathy of unknown type she does have an AICD as well as hypertension and dyslipidemia and history of systemic lupus erythematosus as well as multiple comorbid conditions. The patient was not seen by a business analytics manager for the last several years. She presented to the hospital with shortness of breath which has somewhat progressed for the last several days but started about 4 weeks ago associated with bilateral lower extremities edema and also intermittent episodes of chest discomfort. No dizziness or lightheadedness and no feeling of heart racing or fluttering and no presyncope or syncope. She underwent further investigation including an EKG showed sinus mechanism with sinus tachycardia and diffuse nonspecific ST and T wave abnormalities. D-dimer came in to be elevated and sub sequently she underwent a VQ scan still pending. Troponin came in to be unremarkable. Creatinine is abnormal. Beside that she underwent a chest x-ray did not show any acute abnormalities. NT proBNP came in to elevated at 8000. She was started on Lasix at this point. She is feeling somewhat better. The examination is remarkable for regular rhythm with a distant heart sounds and systolic murmur and bilateral expiratory wheezing and also bilateral lower extremities edema Assessment Shortness of breath and bilateral lower extremities edema Heart failure of unknown etiology History of cardiomyopathy status post AICD Chronic kidney disease History of alcohol use and cocaine use Multiple comorbid conditions Plan Continue the current dose of Lasix IV Continue monitoring the kidney function and electrolytes Follow-up on the echocardiogram which was ordered Acute coronary event was ruled out Follow-up with the patient Past Medical History Past Medical History: Hyperlipidemia, Renal Disease Additional Past Medical History / Comment(s): Gout, lupus, chf, uknown arrhythmia History of Any Multi-Drug Resistant Organisms: None Reported Past Surgical History: Section, Pacemaker Past Psychological History: Anxiety, Bipolar Smoking Status: Current every day smoker Past Alcohol Use History: Abuse, Heavy Past Drug Use History: Cocaine Medications and Allergies Home Medications Medication Instructions Recorded Confirmed Type Acetaminophen Tab [Tylenol] 650 mg PO Q4H PRN 09/12/23 09/12/23 History Albuterol Inhaler [Ventolin Hfa 1 - 2 puff INHALATION RT-Q4H PRN 09/12/23 09/12/23 History Inhaler] Apixaban [Eliquis] 5 mg PO BID 09/12/23 09/12/23 History Aspirin 81 mg PO DAILY 09/12/23 09/12/23 History Atorvastatin Calcium [Lipitor] 40 mg PO HS 09/12/23 09/12/23 History FLUoxetine HCL [PROzac] 20 mg PO DAILY 09/12/23 09/12/23 History Fenofibrate [Lofibra] 54 mg PO HS 09/12/23 09/12/23 History Ferrous Sulfate [Feosol] 325 mg PO DAILY 09/12/23 09/12/23 History Furosemide [Lasix] 40 mg PO DAILY 09/12/23 09/12/23 History Hydroxychloroquine Sulfate 200 mg PO BID 09/12/23 09/12/23 History [Plaquenil] Levothyroxine Sodium [Synthroid] 25 mcg PO DAILY 09/12/23 09/12/23 History Lidocaine 5% Oint [Xylocaine 5% 1 applic TOPICAL TID PRN 09/12/23 09/12/23 History Oint] Lurasidone [Latuda] 40 mg PO DAILY 09/12/23 09/12/23 History Magnesium Oxide [Magox 400] 400 mg PO BID 09/12/23 09/12/23 History Melatonin 10 mg PO HS 09/12/23 09/12/23 History Mirtazapine [Remeron] 15 mg PO HS 09/12/23 09/12/23 History Multivitamins, Thera [Multivitamin 1 tab PO DAILY 09/12/23 09/12/23 History (formulary)] Omeprazole 20 mg PO DAILY 09/12/23 09/12/23 History allopurinoL 100 mg PO DAILY 09/12/23 09/12/23 History busPIRone HCl [Buspar] 10 mg PO TID 09/12/23 09/12/23 History guaiFENesin SYRUP 100MG/5ML 200 mg PO Q4H PRN 09/12/23 09/12/23 History [Robitussin] lisinopriL [Prinivil] 10 mg PO DAILY 09/12/23 09/12/23 History ondansetron HCL [Zofran] 8 mg PO TID 09/12/23 09/12/23 History Allergies Allergy/AdvReac Type Severity Reaction Status Date / Time No Known Allergies Allergy Verified 09/12/23 20:10 Physical Exam Vitals: Vital Signs Temp Pulse Resp BP Pulse Ox 09/13/23 06:42 98.3 F 111 H 16 123/88 94 L 09/13/23 03:03 112 H 17 114/90 65 L 09/12/23 23:23 97.8 F 105 H 20 119/90 96 09/12/23 20:21 98.2 F 112 H 16 121/88 99 09/12/23 17:58 98 F 118 H 18 113/82 98 Intake and Output 09/12/23 09/13/23 09/13/23 22:59 06:59 14:59 Other: Weight 87.09 kg Results 09/12/23 18:57 09/13/23 03:40 Cardiac Enzymes 09/12/23 09/12/23 09/13/23 Range/Units 20:21 20:21 00:53 AST 42 H (14-36) U/L Troponin I 0.015 0.013 (0.000-0.034) ng/mL 09/13/23 Range/Units 03:40 AST (14-36) U/L Troponin I 0.013 (0.000-0.034) ng/mL Coagulation 09/12/23 Range/Units 18:57 PT 12.7 H (10.0-12.5) sec APTT 22.9 (22.0-30.0) sec CBC 09/12/23 Range/Units 18:57 WBC 11.4 H (3.8-10.6) k/uL RBC 5.56 H (3.80-5.40) m/uL Hgb 13.2 (11.4-16.0) gm/dL Hct 47.4 H (34.0-46.0) % Plt Count 170 (150-450) k/uL Comprehensive Metabolic Panel 09/12/23 09/13/23 Range/Units 20:21 03:40 Sodium 136 L 135 L (137-145) mmol/L Potassium 4.6 4.1 (3.5-5.1) mmol/L Chloride 112 H 110 H (98-107) mmol/L Carbon Dioxide 17 L 19 L (22-30) mmol/L BUN 37 H 36 H (7-17) mg/dL Creatinine 1.26 H 1.17 H (0.52-1.04) mg/dL Glucose 118 H 112 H (74-99) mg/dL Calcium 8.3 L 8.2 L (8.4-10.2) mg/dL AST 42 H (14-36) U/L ALT 19 (4-34) U/L Alkaline Phosphatase 101 (38-126) U/L Total Protein 6.2 L (6.3-8.2) g/dL Albumin 2.4 L (3.5-5.0) g/dL Current Medications Generic Name Dose Route Start Last Admin Trade Name Freq PRN Reason Stop Dose Admin Allopurinol 100 mg 09/13/23 09:00 Allopurinol 100 Mg Tab PO DAILY [facility] Apixaban 5 mg 09/13/23 01:00 09/13/23 02:01 Apixaban 5 Mg Tab PO Not Given BID [facility] Protocol Aspirin 325 mg 09/13/23 09:00 Aspirin 325 Mg Tab PO DAILY [facility] Atorvastatin Calcium 40 mg 09/13/23 21:00 Atorvastatin 40 Mg Tab PO HS [facility] Buspirone HCl 10 mg 09/13/23 09:00 Buspirone Hcl 10 Mg Tab PO TID [facility] Fluoxetine HCl 20 mg 09/13/23 09:00 Fluoxetine Hcl 20 Mg Cap PO DAILY [facility] Furosemide 40 mg 09/13/23 09:00 Furosemide 10 Mg/Ml 4 Ml Vial IV Q12HR [facility] Hydroxychloroquine Sulfate 200 mg 09/13/23 09:00 Hydroxychloroquine Sulfate 200 Mg Tab PO BID [facility] Levothyroxine Sodium 25 mcg 09/13/23 06:30 Levothyroxine 25 Mcg Tab PO DAILY@0630 [facility] Lisinopril 10 mg 09/13/23 09:00 Lisinopril 10 Mg Tab PO DAILY [facility] Lurasidone HCl 40 mg 09/13/23 09:00 Lurasidone 40 Mg Tab PO DAILY [facility] Magnesium Oxide 400 mg 09/13/23 09:00 Magnesium Oxide 400 Mg Tab PO BID [facility] Melatonin 10 mg 09/13/23 21:00 Melatonin 5 Mg Tablet PO HS [facility] Mirtazapine 15 mg 09/13/23 21:00 Mirtazapine 15 Mg Tab PO HS [facility] Multivitamins 1 each 09/13/23 09:00 Multivitamins, Thera 1 Each Tab PO DAILY [facility] Nitroglycerin 0.4 mg 09/12/23 21:24 Nitroglycerin Sl Tabs 0.4 Mg Tab SUBLINGUAL Q5M PRN Chest Pain Nitroglycerin 1 inch 09/13/23 00:00 09/13/23 00:09 Nitroglycerin Oint 1 Inch/Gm Packet TOPICAL 1 inch Q6HR [facility] Administration Intake and Output 09/12/23 09/13/23 09/13/23 22:59 06:59 14:59 Other: Weight 87.09 kg 09/12/23 18:57 09/13/23 03:40
[2023-09-13] MEDS: MULTIVITAMINS, THERA 1 EACH TAB PO SCH (09:14)
[2023-09-13] MEDS: MAGNESIUM OXIDE 400 MG TAB PO SCH (09:14)
[2023-09-13] MEDS: allopurinoL 100 MG TAB PO SCH (09:14)
[2023-09-13] MEDS: FLUoxetine HCL 20 MG CAP PO SCH (09:14)
[2023-09-13] MEDS: ASPIRIN 325 MG TAB PO SCH (09:14)
[2023-09-13] MEDS: busPIRone HCl 10 MG TAB PO SCH (09:14)
[2023-09-13] MEDS: FUROSEMIDE 10 MG/ML 4 ML VIAL IV SCH (09:15)
[2023-09-13] MEDS: lisinopriL 10 MG TAB PO SCH (09:15)
[2023-09-13] MEDS: LEVOTHYROXINE 25 MCG TAB PO SCH (09:15)
[2023-09-13 09:20] LABS: Chol/HDL Ratio 3.99 Ratio; LDL Cholesterol,Calculated 61.6 mg/dL (0.0-131.0)
[2023-09-13] MEDS: LURASIDONE 40 MG TAB PO SCH (11:11)
[2023-09-13] MEDS: HYDROXYCHLOROQUINE SULFATE 200 MG TAB PO SCH (11:11)
--- NOTE | 2023-09-13 12:06 | P.PN ---
Subjective Progress Note Date: 09/13/23 33-year-old female with a PMH of CHF (unknown type), alcohol abuse, SLE, polysubstance abuse, A-fib on Eliquis, hypertension, hyperlipidemia, asthma, hypothyroidism, currently experiencing homelessness who was sent to the emergency room from [place] where the patient had presented for alcohol and cocaine abuse. The patient has been staying at [place] since 08/20 and had also presented to the emergency room on 09/06 due to lower extremity swelling and shortness of breath. She was initially discharged back to [place] but now returns due to persistent shortness of breath. Reports following with multiple facilities but notes that she has had a difficult time following up with her physicians due to her currently being homeless. Reports intermittent substernal chest pain, somewhat pleuritic with some tenderness, occurring over the last 2 to 3 days, nonradiating, with no alleviating or exacerbating features, 7 out of 10 at maximal intensity. Does report lower extremity swelling with some orthopnea. Also reports mild diffuse abdominal discomfort intermittently over the past several weeks. Denies fever, chills, cough. Chest x-ray in the emergency room revealed marked cardiomegaly with no acute abnormalities with EKG showing sinus tachycardia at 113 bpm with diffuse T wave flattening as reviewed by me. Laboratory evaluation was remarkable for leukocytosis of 11.4, D-dimer 1.46, BUN 37, creatinine 1.26, glucose 118, calcium 8.3, magnesium 1.5, AST 42, ALT 19, troponin 0.015, proBNP 9100. 09/12 Patient was seen and examined. Sleeping comfortable undergoing Echo. BMP Na 135, Cl 110, bicarb 19, BUN 36, Cr 1.17, glu 112, Ca 8.2. Troponin 0.015, 0.013, 0.013. Lipid panel T. Chol 110, LDL 61.6. Cardiology recommends continued Lasix. V/Q low probability. General: non toxic, no distress, appears at stated age Derm: warm, dry Head: atraumatic, normocephalic, symmetric Eyes: EOMI, no lid lag, anicteric sclera Mouth: no lip lesion, mucus membranes moist Cardiovascular: S1S2 tachy, no murmur Lungs: CTA bilateral, no rhonchi, no rales , no accessory muscle use Ext: no gross muscle atrophy, no edema, no contractures Neuro: no focal neuro deficits Psych: Alert, oriented, appropriate affect Chest pain: Troponins trended and ACS ruled out. V/Q low probability for PE. ASA 81 mg PO QD. Lipitor 40 mg PO QHS. Telemetry monitoring. Echo pending. Cardiology on board. Acute CHF exacerbation: Lasix 40 mg IV BID. CXR shows marked cardiomegaly. Strict intake and outtake. Daily weights. Kidney disease acute versus chronic: Monitor renal function while on Lasix. Hypomagnesemia: Repeat tomorrow. Leukocytosis, suspect due to acute stressor with no signs of active infection at this time Chronic conditions: A-fib, hypertension, hyperlipidemia, hypothyroidism, alcohol abuse, SLE CODE STATUS: FULL CODE DVT Prophylaxis: Eliquis. GI Prophylaxis: Designated medical POA if patient is not able to make medical decisions for themselves: I have reviewed the following application security consultant notes: Cardiology. I have reviewed the results of the following tests: CBC, BMP, Trop x 2, Lipid p lucien, V/Q. I have ordered the following tests: Echo pending. Daily BMP while on Lasix. I have discussed the care of this patient with the following independent historian: RN I have independently interpreted the following test below: I have discussed the management of this patient with the following physician: Objective - Vital Signs Vital signs: Vital Signs Temp 98.3 F 09/13/23 06:42 Pulse 111 H 09/13/23 06:42 Resp 16 09/13/23 06:42 BP 123/88 09/13/23 06:42 Pulse Ox 94 L 09/13/23 06:42 FiO2 Intake & Output 09/12/23 09/13/23 09/13/23 18:59 06:59 18:59 Weight 87.09 kg - Labs CBC & Chem 7: 09/12/23 18:57 09/13/23 03:40 Labs: Abnormal Lab Results - Last 24 Hours (Table) 09/12/23 09/12/23 09/12/23 Range/Units 18:57 18:57 18:57 WBC 11.4 H (3.8-10.6) k/uL RBC 5.56 H (3.80-5.40) m/uL Hct 47.4 H (34.0-46.0) % MCH 23.8 L (25.0-35.0) pg MCHC 27.9 L (31.0-37.0) g/dL RDW 20.8 H (11.5-15.5) % Neutrophils # 7.8 H (1.3-7.7) k/uL PT 12.7 H (10.0-12.5) sec INR 1.2 H (<1.2) D-Dimer 1.46 H (<0.60) mg/L FEU Sodium (137-145) mmol/L Chloride (98-107) mmol/L Carbon Dioxide (22-30) mmol/L BUN (7-17) mg/dL Creatinine (0.52-1.04) mg/dL Glucose (74-99) mg/dL Calcium (8.4-10.2) mg/dL Magnesium (1.6-2.3) mg/dL AST (14-36) U/L Total Protein (6.3-8.2) g/dL Albumin (3.5-5.0) g/dL HDL Cholesterol (40.00-60.00) mg/dL 09/12/23 09/13/23 09/13/23 Range/Units 20:21 03:40 03:40 WBC (3.8-10.6) k/uL RBC (3.80-5.40) m/uL Hct (34.0-46.0) % MCH (25.0-35.0) pg MCHC (31.0-37.0) g/dL RDW (11.5-15.5) % Neutrophils # (1.3-7.7) k/uL PT (10.0-12.5) sec INR (<1.2) D-Dimer (<0.60) mg/L FEU Sodium 136 L 135 L (137-145) mmol/L Chloride 112 H 110 H (98-107) mmol/L Carbon Dioxide 17 L 19 L (22-30) mmol/L BUN 37 H 36 H (7-17) mg/dL Creatinine 1.26 H 1.17 H (0.52-1.04) mg/dL Glucose 118 H 112 H (74-99) mg/dL Calcium 8.3 L 8.2 L (8.4-10.2) mg/dL Magnesium 1.5 L (1.6-2.3) mg/dL AST 42 H (14-36) U/L Total Protein 6.2 L (6.3-8.2) g/dL Albumin 2.4 L (3.5-5.0) g/dL HDL Cholesterol 27.60 L (40.00-60.00) mg/dL
[2023-09-13] MEDS: ATORVASTATIN 40 MG TAB PO SCH (20:52)
[2023-09-13] MEDS: MELATONIN 5 MG TABLET PO SCH (20:52)
[2023-09-13] MEDS: MIRTAZAPINE 15 MG TAB PO SCH (21:12)
--- NOTE | 2023-09-14 07:25 | CA ---
Transthoracic Echo Report Name: Mavis Greenwood Age: 33 Gender: F : 1990 Exam Date: 09/13/2023 09:52 Exam Location: [facility] Ht (in): 65 Wt (lb): 192 Ordering Physician: Fernando Hendrickson MD Attending/Referring Phys: Horizontal Drill Operator AL Procedure CPT: Indications: Chest Pain Cardiac Hx: Technical Quality: Good Contrast 1: Total Dose (mL): Contrast 2: Total Dose (mL): MEASUREMENTS (Male / Female) Normal Values 2D ECHO LV Diastolic Diameter PLAX 6.4 cm 4.2 - 5.9 / 3.9 - 5.3 cm LV Systolic Diameter PLAX 5.9 cm IVS Diastolic Thickness 0.8 cm 0.6 - 1.0 / 0.6 - 0.9 cm LVPW Diastolic Thickness 0.9 cm 0.6 - 1.0 / 0.6 - 0.9 cm LV Relative Wall Thickness 0.3 RV Internal Dim ED PLAX 3.9 cm LVOT Diameter 2.2 cm Aortic Root Diameter 2.7 cm LV Diastolic Volume MOD BP 265.4 cm??? 67 - 155 / 56 - 104 cm??? LV Systolic Volume MOD BP 208.0 cm??? 22 - 58 / 19 - 49 cm??? LV Ejection Fraction MOD BP 21.6 % >= 55 % LV Cardiac Index MOD BP 3055.4 cm???/min???m??? LV Diastolic Volume MOD 4C 254.7 cm??? LV Systolic Volume MOD 4C 195.8 cm??? LV Ejection Fraction MOD 4C 23.1 % LV Cardiac Index MOD 4C 3134.6 cm???/min???m??? LV Diastolic Length 4C 10.7 cm LV Systolic Length 4C 9.9 cm LV Diastolic Volume MOD 2C 261.3 cm??? LV Systolic Volume MOD 2C 215.2 cm??? LV Ejection Fraction MOD 2C 17.7 % LV Cardiac Index MOD 2C 2454.2 cm???/min???m??? LV Diastolic Length 2C 10.0 cm LV Systolic Length 2C 9.5 cm Ascending Aorta Diameter 2.5 cm M-MODE LV Diastolic Diameter MM 6.0 cm 4.2 - 5.9 / 3.9 - 5.3 cm LV Systolic Diameter MM 5.6 cm LV Cardiac Index MM Teich 1435.1 cm???/min???m??? IVS Diastolic Thickness MM 1.0 cm 0.6 - 1.0 / 0.6 - 0.9 cm LVPW Diastolic Thickness MM 1.4 cm 0.6 - 1.0 / 0.6 - 0.9 cm LV Relative Wall Thickness MM 0.4 0.24 - 0.42 / 0.22 - 0.42 LV Mass Index MM 162.5 g/m??? 49 - 115 / 43 - 95 g/m??? DOPPLER AV Peak Velocity 91.1 cm/s AV Peak Gradient 3.3 mmHg AV Mean Velocity 64.0 cm/s AV Mean Gradient 1.8 mmHg AV Velocity Time Integral 11.8 cm LVOT Peak Velocity 79.1 cm/s LVOT Peak Gradient 2.5 mmHg LVOT Velocity Time Integral 10.2 cm LVOT Stroke Volume 39.7 cm??? LVOT Stroke Volume Index 20.4 ml/m??? LVOT Cardiac Index 2112.8 cm???/min???m??? AV Area Cont Eq vti 3.4 cm??? AV Area Cont Eq pk 3.4 cm??? MR Peak Velocity 498.5 cm/s MR Peak Gradient 99.4 mmHg MR Flow Rate PISA 233.5 cm???/s MR ERO PISA 0.5 cm??? MR Regurgitant Volume PISA 62.1 cm??? TR Peak Velocity 260.6 cm/s TR Peak Gradient 27.2 mmHg Right Atrial Pressure 20.0 mmHg Pulmonary Artery Systolic Pressu 47.2 mmHg Right Ventricular Systolic Press 47.2 mmHg PV Peak Velocity 73.6 cm/s PV Peak Gradient 2.2 mmHg FINDINGS Left Ventricle Left ventricular ejection fraction is estimated at 20 %. Severely increased left ventricular mass. Mildly increased septal wall thickness. Moderately increased posterior wall thickness. Severely decreased fractional shortening. Severely decreased midwall fractional shortening. Moderately increased left ventricular diastolic diameter. Severely increased left ventricular diastolic volume. Severely increased left ventricular systolic volume. Severely decreased left ventricular ejection fraction. Right Ventricle Moderate right ventricular dilatation with moderately reduced function. Moderately elevated right ventricular systolic function. Right Atrium Moderate right atrial dilatation. Left Atrium Severe left atrial dilatation. Mitral Valve Mitral valve thickened. No evidence for mitral valve prolapse. No mitral stenosis. Moderate to severe mitral regurgitation. Aortic Valve Trileaflet aortic valve. No aortic stenosis. Trace aortic regurgitation. Tricuspid Valve Structurally normal tricuspid valve. No tricuspid stenosis. Moderate tricuspid regurgitation. Pulmonic Valve Structurally normal pulmonic valve. No pulmonic stenosis. [id number] pulmonic regurgitation. Pericardium Small pericardial effusion. Aorta Normal size aortic root and proximal ascending aorta. CONCLUSIONS Dilated left ventricle. Severely impaired LV function with EF 20% Moderate to severe mitral regurgitation with intact mitral valve leaflets. The MR is likely secondary to cardiomyopathy Trileaflet aortic valve with no stenosis or regurgitation Moderate pulmonary hypertension Dilated right ventricle Moderate tricuspid regurgitation Previewed by: Dr. Song Daniel MD (Electronically Signed) Final Date: 14 Sep 2023 07:24
[2023-09-14] MEDS: ASPIRIN 81 MG PO SCH ×2 (08:31→08:44)
[2023-09-14] MEDS: FERROUS SULFATE 325 MG TAB PO SCH (08:46)
--- NOTE | 2023-09-14 10:34 | P.PN ---
Subjective Progress Note Date: 09/14/23 33-year-old female with a PMH of CHF (unknown type), alcohol abuse, SLE, polysubstance abuse, A-fib on Eliquis, hypertension, hyperlipidemia, asthma, hypothyroidism, currently experiencing homelessness who was sent to the emergency room from [place] where the patient had presented for alcohol and cocaine abuse. The patient has been staying at [facility] since 08/20 and had also presented to the emergency room on 09/06 due to lower extremity swelling and shortness of breath. She was initially discharged back to [place] but now returns due to persistent shortness of breath. Reports following with multiple facilities but notes that she has had a difficult time following up with her physicians due to her currently being homeless. Reports intermittent substernal chest pain, somewhat pleuritic with some tenderness, occurring over the last 2 to 3 days, nonradiating, with no alleviating or exacerbating features, 7 out of 10 at maximal intensity. Does report lower extremity swelling with some orthopnea. Also reports mild diffuse abdominal discomfort intermittently over the past several weeks. Denies fever, chills, cough. Chest x-ray in the emergency room revealed marked cardiomegaly with no acute abnormalities with EKG showing sinus tachycardia at 113 bpm with diffuse T wave flattening as reviewed by me. Laboratory evaluation was remarkable for leukocytosis of 11.4, D-dimer 1.46, BUN 37, creatinine 1.26, glucose 118, calcium 8.3, magnesium 1.5, AST 42, ALT 19, troponin 0.015, proBNP 9100. 09/12 Patient was seen and examined. Sleeping comfortable undergoing Echo. BMP Na 135, Cl 110, bicarb 19, BUN 36, Cr 1.17, glu 112, Ca 8.2. Troponin 0.015, 0.013, 0.013. Lipid panel T. Chol 110, LDL 61.6. Cardiology recommends continued Lasix. V/Q low probability. 09/13 Patient was seen and examined. No more chest pain. Breathing better. Feeling back at baseline. Maintained on Lasix 40 mg IV BID. BMP Na 135, Cl 110, bicarb 19, BUN 36, Cr 1.17, glu 112, Ca 8.2. Mag 1.7.. Echocardiogram shows EF 20% with diastolic dysfunction, DC/TR/AR. Discussed with Lynnette VIDES, obtain [facility] records to compare Echo, continue IV diuresis. General: non toxic, no distress, appears at stated age Derm: warm, dry Head: atraumatic, normocephalic, symmetric Eyes: EOMI, no lid lag, anicteric sclera Mouth: no lip lesion, mucus membranes moist Cardiovascular: S1S2 tachy, no murmur Lungs: CTA bilateral, no rhonchi, no rales , no accessory muscle use Ext: no gross muscle atrophy, no edema, no contractures Neuro: no focal neuro deficits Psych: Alert, oriented, appropriate affect Chest pain: Troponins trended and ACS ruled out. V/Q low probability for PE. ASA 81 mg PO QD. Lipitor 40 mg PO QHS. Telemetry monitoring. Echo as above. Cardiology on board. Acute CHF exacerbation: Lasix 40 mg IV BID. CXR shows marked cardiomegaly. Strict intake and outtake. Daily weights. Kidney disease acute versus chronic: Monitor renal function while on Lasix. Leukocytosis, suspect due to acute stressor with no signs of active infection at this time Resolved: HypoMag Chronic conditions: A-fib, hypertension, hyperlipidemia, hypothyroidism, alcohol abuse, SLE CODE STATUS: FULL CODE DVT Prophylaxis: Eliquis. GI Prophylaxis: Omeprazole. Designated medical POA if patient is not able to make medical decisions for themselves: I have reviewed the following art sales consultant notes: Cardiology I have reviewed the results of the following tests: BMP, Mag, Echo. I have ordered the following tests: BMP and Mag pending for tomorrow morning. I have discussed the care of this patient with the following independent hist orian: I have independently interpreted the following test below: I have discussed the management of this patient with the following physician: Lynnette VIDES as above. Objective - Vital Signs Vital signs: Vital Signs Temp 97.6 F 09/14/23 01:45 Pulse 118 H 09/14/23 01:45 Resp 18 09/14/23 01:45 BP 120/88 09/14/23 01:45 Pulse Ox 98 09/14/23 01:45 FiO2 Intake & Output 09/13/23 09/13/23 09/14/23 06:59 18:59 06:59 Other: # Voids 1 - Labs CBC & Chem 7: 09/12/23 18:57 09/13/23 03:40 Labs: Abnormal Lab Results - Last 24 Hours (Table) 09/13/23 Range/Units 03:40 HDL Cholesterol 27.60 L (40.00-60.00) mg/dL
[2023-09-14 10:53] LABS: Anisocytosis Moderate; HCT 41.1 % (34.0-46.0); HGB 11.9 gm/dL (11.4-16.0); Hypochromasia Marked; MCH 24.5 pg (25.0-35.0); MCHC 29.1 g/dL (31.0-37.0); MCV 84.2 fL (80.0-100.0); Mean Platelet Volume 10.6; Microcytosis Slight; Platelet Count 160 k/uL (150-450); Poikilocytosis Moderate; RBC 4.88 m/uL (3.80-5.40); RDW 21.2 % (11.5-15.5); WBC 9.3 k/uL (3.8-10.6)
--- NOTE | 2023-09-14 10:56 | P.PN ---
Subjective HISTORY OF PRESENT ILLNESS: The patient is a pleasant 33-year-old -Indian female patient with a past medical history significant for history of cocaine use and history of alcohol use currently she is in the rehabilitation facility last time she drank alcohol was about 30 days ago as well as history of cardiomyopathy of unknown type she does have an AICD as well as hypertension and dyslipidemia and history of systemic lupus erythematosus as well as multiple comorbid conditions. The patient was not seen by a medication manager for the last several years. She presented to the hospital with shortness of breath which has somewhat progressed for the last several days but started about 4 weeks ago associated with bilateral lower extremities edema and also intermittent episodes of chest discomfort. No dizziness or lightheadedness and no feeling of heart racing or fluttering and no presyncope or syncope. She underwent further investigation including an EKG showed sinus mechanism with sinus tachycardia and diffuse nonspecific ST and T wave abnormalities. D-dimer came in to be elevated and subsequently she underwent a VQ scan still pending. Troponin came in to be unremarkable. Creatinine is abnormal. Beside that she underwent a chest x-ray did not show any acute abnormalities. NT proBNP came in to elevated at 8000. She was started on Lasix at this point. She is feeling somewhat better. The examination is remarkable for regular rhythm with a distant heart sounds and systolic murmur and bilateral expiratory wheezing and also bilateral lower extremities edema 09/14/2023 Patient examined this morning at bedside. Patient reports her breathing feels improved this morning. She still continues to have lower extremity edema. She remains on IV Lasix. Echocardiogram completed revealing ejection fraction 20%, severely increased left ventricular mass, mildly increased septal wall thickness, moderately increased posterior wall thickness, severely decreased fractional shortening, severely decreased mid wall fractioning shortening, moderately increased left ventricular diastolic diameter, severely increased left ventricular diastolic volume, severely increased left ventricular systolic volume, severely decreased left ventricular ejection fraction, moderate to severe MR, trace AR, moderate TR PHYSICAL EXAM: VITAL SIGNS: Reviewed. GENERAL: Well-developed in no acute distress. NECK: Supple. No JVD or thyromegaly LUNGS: Respirations even and unlabored. Lungs essentially clear to auscultation bilaterally. HEART: Regular rate and rhythm. S1 and S2 heard. Systolic murmur EXTREMITIES: Normal range of motion. No clubbing or cyanosis. Peripheral pulses intact. 2+ bilateral lower extremity edema ASSESSMENT: Shortness of breath Acute on chronic heart failure with reduced EF, 20% History of cardiomyopathy status post AICD, ischemic versus nonischemic Chronic kidney disease History of alcohol abuse History of cocaine use Hypertension Hyperlipidemia History of systemic lupus erythematosus Moderate to severe mitral regurgitation, likely secondary to cardiomyopathy Moderate pulmonary hypertension Paroxysmal atrial fibrillation, on Eliquis outpatient Nicotine dependence PLAN: Continue current cardiac medications Add metoprolol succinate 25 mg daily Add Aldactone 25 mg daily Continue IV Lasix 40 mg every 12 hours Daily weights, accurate intake and output, and monitoring of kidney function Patient states she has not seen a medication manager in over 2 years. She states that she has just been going to the emergency room for the past 2 years for medical care as she has been homeless. She reports she was hospitalized at [facility] in [place] last year and believes she had an echocardiogram completed at that time. Will attempt to get records of echocardiogram performed at that time. Further recommendations pending patient course Nurse practitioner note has been reviewed by physician. Signing provider agrees with the documented findings, assessment, and plan of care documented by PRESCHOOL ASSISTANT PRINCIPAL as a scribe. Objective - Vital Signs Vital signs: Vital Signs Temp 97.8 F 09/14/23 06:49 Pulse 104 H 09/14/23 06:49 Resp 16 09/14/23 06:49 BP 120/89 09/14/23 06:49 Pulse Ox 97 09/14/23 06:49 FiO2 Intake & Output 09/13/23 09/14/23 09/14/23 18:59 06:59 18:59 Weight 83.5 kg Other: # Voids 1 - Labs CBC & Chem 7: 09/14/23 09:38 09/13/23 03:40
[2023-09-14 11:00] LABS: African American GFR (CKD) 56 (>60 ml/min/1.73 sqM); Anion Gap 5 mmol/L; Blood Urea Nitrogen 34 mg/dL (7-17); Calcium 8.7 mg/dL (8.4-10.2); Carbon Dioxide 22 mmol/L (22-30); Chloride 109 mmol/L (98-107); Glucose 129 mg/dL (74-99); Magnesium 1.6 mg/dL (1.6-2.3); Non-African American GFR(CKD) 48 (>60 ml/min/1.73 sqM); Potassium 4.2 mmol/L (3.5-5.1); Sodium 136 mmol/L (137-145)
[2023-09-14] MEDS: METOPROLOL SUCCINATE (ER) 25 MG TAB.ER.24H PO SCH (12:24)
[2023-09-14] MEDS: PANTOPRAZOLE 40 MG TABLET PO SCH (12:24)
[2023-09-14] MEDS: SPIRONOLACTONE 25 MG TAB PO SCH (12:24)
[2023-09-14] MEDS: HYDROcodone/APAP 5-325MG 1 EACH TAB PO PRN (16:40)
[2023-09-14] MEDS: FENOFIBRATE 54 MG TAB PO SCH (21:29)
--- NOTE | 2023-09-15 09:54 | P.PN ---
Subjective HISTORY OF PRESENT ILLNESS: The patient is a pleasant 33-year-old -[place] female patient with a past medical history significant for history of cocaine use and history of alcohol use currently she is in the rehabilitation facility last time she drank alcohol was about 30 days ago as well as history of cardiomyopathy of unknown type she does have an AICD as well as hypertension and dyslipidemia and history of systemic lupus erythematosus as well as multiple comorbid conditions. The patient was not seen by a senior clinical sas programmer for the last several years. She presented to the hospital with shortness of breath which has somewhat progressed for the last several days but started about 4 weeks ago associated with bilateral lower extremities edema and also intermittent episodes of chest discomfort. No dizziness or lightheadedness and no feeling of heart racing or fluttering and no presyncope or syncope. She underwent further investigation including an EKG showed sinus mechanism with sinus tachycardia and diffuse nonspecific ST and T wave abnormalities. D-dimer came in to be elevated and subsequently she underwent a VQ scan still pending. Troponin came in to be unremarkable. Creatinine is abnormal. Beside that she underwent a chest x-ray did not show any acute abnormalities. NT proBNP came in to elevated at 8000. She was started on Lasix at this point. She is feeling somewhat better. The examination is remarkable for regular rhythm with a distant heart sounds and systolic murmur and bilateral expiratory wheezing and also bilateral lower extremities edema 09/14/2023 Patient examined this morning at bedside. Patient reports her breathing feels improved this morning. She still continues to have lower extremity edema. She remains on IV Lasix. Echocardiogram completed revealing ejection fraction 20%, severely increased left ventricular mass, mildly increased septal wall thickness, moderately increased posterior wall thickness, severely decreased fractional shortening, severely decreased mid wall fractioning shortening, moderately increased left ventricular diastolic diameter, severely increased left ventricular diastolic volume, severely increased left ventricular systolic volume, severely decreased left ventricular ejection fraction, moderate to severe MR, trace AR, moderate TR 09/14/2023 Patient examined this morning. Patient states she is feeling much better today. She denies chest pain or pressure. She currently denies shortness of breath. She continues to have lower extremity edema although improved. She remains on IV diuretics. Kidney function from this morning is currently pending. Records obtained from [facility] revealing that patient had a previous ejection fraction of 30% and also documented nonischemic cardiomyopathy. PHYSICAL EXAM: VITAL SIGNS: Reviewed. GENERAL: Well-developed in no acute distress. NECK: Supple. No JVD or thyromegaly LUNGS: Respirations even and unlabored. Lungs essentially clear to auscultation bilaterally. HEART: Regular rate and rhythm. S1 and S2 heard. Systolic murmur EXTREMITIES: Normal range of motion. No clubbing or cyanosis. Peripheral pulses intact. 2+ bilateral lower extremity edema ASSESSMENT: Shortness of breath Acute on chronic heart failure with reduced EF, 20% History of cardiomyopathy status post AICD, nonischemic Chronic kidney disease History of alcohol abuse History of cocaine use Hypertension Hyperlipidemia History of systemic lupus erythematosus Moderate to severe mitral regurgitation, likely secondary to cardiomyopathy Moderate pulmonary hypertension Paroxysmal atrial fibrillation, on Eliquis outpatient Nicotine dependence PLAN: Continue current cardiac medications Continue IV Lasix 40 mg every 12 hours Daily weights, accurate intake and output, and monitoring of kidney function. Awaiting kidney function from this morning Decrease lisinopril to 5 mg daily secondary to soft blood pressures Further recommendations pending patient course Nurse practitioner note has been reviewed by physician. Signing provider agrees with the documented findings, assessment, and plan of care documented by CHIEF ENGINEER RESEARCH as a scribe. Objective - Vital Signs Vital signs: Vital Signs Temp 97.6 F 09/15/23 07:49 Pulse 82 09/15/23 07:49 Resp 16 09/15/23 07:49 BP 98/68 09/15/23 07:49 Pulse Ox 99 09/15/23 09:29 FiO2 21 09/15/23 09:29 Intake & Output 09/14/23 09/15/23 09/15/23 18:59 06:59 18:59 Intake Total 118 Output Total 550 Balance 118 -550 Weight 82.9 kg Intake: Oral 118 Output: Urine 550 Other: # Voids 4 # Bowel Movements 1 - Labs CBC & Chem 7: 09/14/23 09:38 09/14/23 09:38 Labs: Abnormal Lab Results - Last 24 Hours (Table) 09/14/23 09/14/23 Range/Units 09:38 09:38 MCH 24.5 L (25.0-35.0) pg MCHC 29.1 L (31.0-37.0) g/dL RDW 21.2 H (11.5-15.5) % Sodium 136 L (137-145) mmol/L Chloride 109 H (98-107) mmol/L BUN 34 H (7-17) mg/dL Creatinine 1.43 H (0.52-1.04) mg/dL Glucose 129 H (74-99) mg/dL
[2023-09-15 11:08] LABS: BUN/Creat Ratio 19.68 Ratio (12.00-20.00); Blood Urea Nitrogen 37.4 mg/dL (9.0-27.0); Calcium 8.6 mg/dL (8.7-10.3); Carbon Dioxide 20.2 mmol/L (21.6-31.8); Chloride 104 mmol/L (96-109); Glucose 96 mg/dL (70-110); Potassium 4.6 mmol/L (3.5-5.5); Sodium 137 mmol/L (135-145)
--- NOTE | 2023-09-15 19:08 | P.PN ---
Subjective Progress Note Date: 09/15/23 Hospital course: Patient is a 83-year-old female with a past medical history of CHF (unknown type), alcohol abuse, SLE, polysubstance abuse, A-fib on Eliquis, hypertension, hyperlipidemia, chronic kidney disease, asthma, hypothyroidism, and currently experiencing homelessness. She presented to the emergency department on 09/12/2023 from [place] for bilateral lower extremity edema and shortness of breath. She underwent evaluation in the emergency department. Vital signs upon arrival show blood pressure 113/82, heart rate 118, respiratory rate 18, temp 98.0 F, and SpO2 of 98% on room air. EKG completed showing sinus tachycardia at 113 bpm. Chest x-ray showing cardiomegaly but reported negative for acute cardiopulmonary process. Labs completed and reviewed. CBC showing leukocytosis with WBC count of 11.4. BMP showing non-anion gap metabolic acidosis with chloride of 112, bicarb 17, and anion gap of 7 and consistent with known chronic kidney disease with BUN of 37, creatinine 1.26, GFR 56. Magnesium was low at 1.5. Liver profile showing elevated AST of 42 otherwise normal findings. Troponin was 0.015. proBNP was 9100. Coagulation profile showing elevated D- dimer of 1.46. VQ scan was completed showing very low probability for pulmonary emboli. Patient was admitted under our services for CHF exacerbation. Cardiology was consulted. Troponins trended resulting at 0.015, 0.013, and 0.013. Lipid profile unremarkable with exception of low HDL of 27.60. Echocardiogram was completed showing a severely impaired EF of 20% with dilated left ventricle, moderate to severe mitral regurgitation, moderate pulmonary hypertension, dilated right ventricle, and moderate tricuspid regurgitation. Physical exam: Vital signs reviewed and stable. General: Nontoxic, no distress and appears stated age. Derm: Skin warm and dry, normal coloration for ethnicity. Head: Atraumatic, normocephalic and symmetric. Eyes: EOMs intact, no lid lag, and anicteric sclera Mouth: no lip lesions, mucus membranes moist Cardiovascular: regular rate and rhythm with normal S1S2, systolic murmur, positive posterior tibial pulses bilaterally, and cap refill < 2 seconds. Lungs: Respirations even, regular, and unlabored on room air. Lungs CTA bilaterally, no rhonchi, no rales, no wheezing, and no accessory muscle usage. Abdominal: soft, nontender to palpation, no guarding, no appreciable organomegaly Ext: ROM intact. No gross muscle atrophy, no edema, no contractures Neuro: Speech clear, face symmetrical and CN II-XII grossly intact with no noted focal neuro deficits Psych: Alert and oriented to person, place, time, and situation. Appropriate and pleasant affect. Assessment and Plan of Care: Acute on chronic systolic heart failure exacerbation Paroxysmal atrial fibrillation Hypertension Hyperlipidemia Polysubstance abuse with alcohol and cocaine SLE -Cardiology following, reviewed documentation in chart -Telemetry monitoring -Daily weights and close monitoring of I's and O's -Cardiac diet -Lasix 40 mg IVP every 12 hours -Continue cardiac medication regimen with aspirin 81 mg daily, Eliquis 5 mg twice daily, atorvastatin 40 mg nightly, fenofibrate 54 mg nightly, lisinopril 5 mg daily, metoprolol 25 mg daily, and Aldactone 25 mg daily -Continued close monitoring of electrolytes while diuresing. Hypomagnesemia -Replaced. Patient to continue Mag-Ox 400 mg twice daily. Hypothyroidism Continue levothyroxine 25 mcg daily. Acute kidney injury on chronic kidney disease stage IIIb Anemia of chronic disease Monitor renal function closely while undergoing IV diuresis. Continue ferrous sulfate 325 mg daily. Data reviewed: Morning labs reviewed. BMP showing acute kidney injury on chronic kidney disease with BUN of 37.4, creatinine 1.9, and GFR of 35. Vital signs reviewed. Blood pressure 98/68, heart rate 82, respiratory rate 16, temp 97.6 F, and SpO2 of 99% on room air. Echocardiogram was completed showing a severely impaired EF of 20% with dilated left ventricle, moderate to severe mitral regurgitation, moderate pulmonary hypertension, dilated right ventricle, and moderate tricuspid regurgitation. CODE STATUS: Full code DVT prophylaxis: Eliquis Anticipated discharge date: Clinical course to determine Anticipated discharge place: Clinical course to determine Patient was seen independently by Nurse Pracitioner. This document was prepared using [employer] dictation software. Please allow for errors in compounding technician, while rare they do occur. Segundo Jordan NP rendered care for this patient independently, reviewed the findings and plan as documented in the note above. I did not physically speak w ith or examine the patient on this date. Objective - Vital Signs Vital signs: Vital Signs Temp 97.6 F 09/15/23 07:49 Pulse 82 09/15/23 07:49 Resp 16 09/15/23 07:49 BP 98/68 09/15/23 07:49 Pulse Ox 99 09/15/23 07:49 FiO2 Intake & Output 09/14/23 09/15/23 09/15/23 18:59 06:59 18:59 Intake Total 118 Output Total 550 Balance 118 -550 Weight 82.9 kg Intake: Oral 118 Output: Urine 550 Other: # Voids 4 # Bowel Movements 1 - Labs CBC & Chem 7: 09/14/23 09:38 09/15/23 06:43 Labs: Abnormal Lab Results - Last 24 Hours (Table) 09/14/23 09/14/23 Range/Units 09:38 09:38 MCH 24.5 L (25.0-35.0) pg MCHC 29.1 L (31.0-37.0) g/dL RDW 21.2 H (11.5-15.5) % Sodium 136 L (137-145) mmol/L Chloride 109 H (98-107) mmol/L BUN 34 H (7-17) mg/dL Creatinine 1.43 H (0.52-1.04) mg/dL Glucose 129 H (74-99) mg/dL
[2023-09-15] MEDS: ONDANSETRON 4 MG/2 ML VIAL IVP STA (22:03)
[2023-09-16] MEDS: FUROSEMIDE 40 MG TAB PO SCH (09:15)
[2023-09-16] MEDS: lisinopriL 5 MG TAB PO SCH (09:21)
--- NOTE | 2023-09-16 09:45 | P.PN ---
Subjective HISTORY OF PRESENT ILLNESS: The patient is a pleasant 33-year-old -[place] female patient with a past medical history significant for history of cocaine use and history of alcohol use currently she is in the rehabilitation facility last time she drank alcohol was about 30 days ago as well as history of cardiomyopathy of unknown type she does have an AICD as well as hypertension and dyslipidemia and history of systemic lupus erythematosus as well as multiple comorbid conditions. The patient was not seen by a dinkey skinner for the last several years. She presented to the hospital with shortness of breath which has somewhat progressed for the last several days but started about 4 weeks ago associated with bilateral lower extremities edema and also intermittent episodes of chest discomfort. No dizziness or lightheadedness and no feeling of heart racing or fluttering and no presyncope or syncope. She underwent further investigation including an EKG showed sinus mechanism with sinus tachycardia and diffuse nonspecific ST and T wave abnormalities. D-dimer came in to be elevated and subsequently she underwent a VQ scan still pending. Troponin came in to be unremarkable. Creatinine is abnormal. Beside that she underwent a chest x-ray did not show any acute abnormalities. NT proBNP came in to elevated at 8000. She was started on Lasix at this point. She is feeling somewhat better. The examination is remarkable for regular rhythm with a distant heart sounds and systolic murmur and bilateral expiratory wheezing and also bilateral lower extremities edema 09/14/2023 Patient examined this morning at bedside. Patient reports her breathing feels improved this morning. She still continues to have lower extremity edema. She remains on IV Lasix. Echocardiogram completed revealing ejection fraction 20%, severely increased left ventricular mass, mildly increased septal wall thickness, moderately increased posterior wall thickness, severely decreased fractional shortening, severely decreased mid wall fractioning shortening, moderately increased left ventricular diastolic diameter, severely increased left ventricular diastolic volume, severely increased left ventricular systolic volume, severely decreased left ventricular ejection fraction, moderate to severe MR, trace AR, moderate TR 09/15/2023 Patient examined this morning. Patient states she is feeling much better today. She denies chest pain or pressure. She currently denies shortness of breath. She continues to have lower extremity edema although improved. She remains on IV diuretics. Kidney function from this morning is currently pending. Records obtained from [facility] revealing that patient had a previous ejection fraction of 30% and also documented nonischemic cardiomyopathy. 09/16/2023 Patient examined this morning the bedside. Patient denies chest pain or pressure. She denies shortness of breath. Vital signs are stable. She remains on IV Lasix. Kidney function from this morning is currently pending. PHYSICAL EXAM: VITAL SIGNS: Reviewed. GENERAL: Well-developed in no acute distress. NECK: Supple. No JVD or thyromegaly LUNGS: Respirations even and unlabored. Lungs essentially clear to auscultation bilaterally. HEART: Regular rate and rhythm. S1 and S2 heard. Systolic murmur EXTREMITIES: Normal range of motion. No clubbing or cyanosis. Peripheral pulses intact. 1+ bilateral lower extremity edema ASSESSMENT: Shortness of breath Acute on chronic heart failure with reduced EF, 20% History of cardiomyopathy status post AICD, nonischemic Chronic kidney disease History of alcohol abuse History of cocaine use Hypertension Hyperlipidemia History of systemic lupus erythematosus Moderate to severe mitral regurgitation, likely secondary to cardiomyopathy Moderate pulmonary hypertension Paroxysmal atrial fibrillation, on Eliquis outpatient Nicotine dependence PLAN: Discontinue IV Lasix Begin oral Lasix 40 mg twice a day Continue additional cardiac medications Patient may be discharged today from a cardiac standpoint We will sign off. Please reconsult if needed. Nurse practitioner note has been reviewed by physician. Signing provider agrees with the documented findings, assessment, and plan of care documented by MASTIC WORKER as a scribe. Objective - Vital Signs Vital signs: Vital Signs Temp 97.8 F 09/16/23 06:45 Pulse 82 09/16/23 06:45 Resp 16 09/16/23 06:45 BP 104/73 09/16/23 06:45 Pulse Ox 100 09/16/23 06:45 FiO2 21 09/15/23 09:29 Intake & Output 09/15/23 09/16/23 09/16/23 18:59 06:59 18:59 Weight 82 kg Other: Voiding Method Toilet Toilet - Labs CBC & Chem 7: 09/14/23 09:38 09/15/23 06:43 Labs: Abnormal Lab Results - Last 24 Hours (Table) 09/15/23 Range/Units 06:43 Carbon Dioxide 20.2 L (21.6-31.8) mmol/L Anion Gap 12.80 H (4.00-12.00) mmol/L BUN 37.4 H (9.0-27.0) mg/dL Creatinine 1.9 H (0.6-1.5) mg/dL Est GFR (CKD-EPI) 35 L (>=60) Calcium 8.6 L (8.7-10.3) mg/dL
[2023-09-16 11:09] LABS: BUN/Creat Ratio 18.42 Ratio (12.00-20.00); Blood Urea Nitrogen 44.2 mg/dL (9.0-27.0); Calcium 8.9 mg/dL (8.7-10.3); Carbon Dioxide 18.7 mmol/L (21.6-31.8); Chloride 106 mmol/L (96-109); Glucose 102 mg/dL (70-110); Magnesium 1.9 mg/dL (1.5-2.4); Potassium 5.3 mmol/L (3.5-5.5); Sodium 139 mmol/L (135-145)
[2023-09-16 11:36] LABS: HCT 42.4 % (37.2-46.3); HGB 12.9 g/dL (12.0-15.0); MCH 23.3 pg (27.0-32.0); MCHC 30.4 g/dL (32.0-37.0); MCV 76.7 FL (80.0-97.0); NRBC Per 100 WBC 0.09 X 10*3/uL (0.00-0.01); Platelet Count 134 X 10*3/uL (140-440); RBC 5.53 X 10*6/uL (4.10-5.20); RDW 22.4 % (11.5-14.5); WBC 8.91 X 10*3/uL (4.50-10.00)
--- NOTE | 2023-09-16 18:18 | P.PN ---
Subjective Progress Note Date: 09/16/23 Hospital course: Patient is a 83-year-old female with a past medical history of CHF (unknown type), alcohol abuse, SLE, polysubstance abuse, A-fib on Eliquis, hypertension, hyperlipidemia, chronic kidney disease, asthma, hypothyroidism, and currently experiencing homelessness. She presented to the emergency department on 09/12/2023 from [place] for bilateral lower extremity edema and shortness of breath. She underwent evaluation in the emergency department. Vital signs upon arrival show blood pressure 113/82, heart rate 118, respiratory rate 18, temp 98.0 F, and SpO2 of 98% on room air. EKG completed showing sinus tachycardia at 113 bpm. Chest x-ray showing cardiomegaly but reported negative for acute cardiopulmonary process. Labs completed and reviewed. CBC showing leukocytosis with WBC count of 11.4. BMP showing non-anion gap metabolic acidosis with chloride of 112, bicarb 17, and anion gap of 7 and consistent with known chronic kidney disease with BUN of 37, creatinine 1.26, GFR 56. Magnesium was low at 1.5. Liver profile showing elevated AST of 42 otherwise normal findings. Troponin was 0.015. proBNP was 9100. Coagulation profile showing elevated D- dimer of 1.46. VQ scan was completed showing very low probability for pulmonary emboli. Patient was admitted under our services for CHF exacerbation. Cardiology was consulted. Troponins trended resulting at 0.015, 0.013, and 0.013. Lipid profile unremarkable with exception of low HDL of 27.60. Echocardiogram was completed showing a severely impaired EF of 20% with dilated left ventricle, moderate to severe mitral regurgitation, moderate pulmonary hypertension, dilated right ventricle, and moderate tricuspid regurgitation. Physical exam: Patient seen and fully evaluated at bedside this morning. She reports feeling much better this morning and ready to go home. Initial plan was for discharge however repeat morning labs show worsening renal function. IV Lasix was stopped and patient transition to oral diuretics will continue to monitor renal function closely for improvement. Vital signs reviewed and stable. General: Nontoxic, no distress and appears stated age. Derm: Skin warm and dry, normal coloration for ethnicity. Head: Atraumatic, normocephalic and symmetric. Eyes: EOMs intact, no lid lag, and anicteric sclera Mouth: no lip lesions, mucus membranes moist Cardiovascular: regular rate and rhythm with normal S1S2, systolic murmur, positive posterior tibial pulses bilaterally, and cap refill < 2 seconds. Lungs: Respirations even, regular, and unlabored on room air. Lungs CTA bilaterally, no rhonchi, no rales, no wheezing, and no accessory muscle usage. Abdominal: soft, nontender to palpation, no guarding, no appreciable organomegaly Ext: ROM intact. No gross muscle atrophy, no edema, no contractures Neuro: Speech clear, face symmetrical and CN II-XII grossly intact with no noted focal neuro deficits Psych: Alert and oriented to person, place, time, and situation. Appropriate and pleasant affect. Assessment and Plan of Care: Acute on chronic systolic heart failure exacerbation Acute kidney injury on chronic kidney disease Paroxysmal atrial fibrillation Hypertension Hyperlipidemia Polysubstance abuse with alcohol and cocaine SLE -Echocardiogram was completed showing a severely impaired EF of 20% with dilated left ventricle, moderate to severe mitral regurgitation, moderate pulmonary hypertension, dilated right ventricle, and moderate tricuspid regurgitation. -Cardiology following, discontinued IV Lasix recommending patient restarted on oral Lasix 40 mg twice daily. -Lisinopril held secondary to acute kidney injury. -Patient to remain on telemetry monitoring -Daily weights and close monitoring of I's and O's -Cardiac diet -Continue cardiac medication regimen with aspirin 81 mg daily, Eliquis 5 mg twice daily, atorvastatin 40 mg nightly, fenofibrate 54 mg nightly, metoprolol 25 mg daily, and Aldactone 25 mg daily. -Continued close monitoring of renal function with repeat morning BMP Hypomagnesemia, resolved. Patient to continue Mag-Ox 400 mg twice daily. Hypothyroidism. Continue levothyroxine 25 mcg daily. Anemia of chronic disease Continue ferrous sulfate 325 mg daily. Data reviewed: Morning labs reviewed. CBC showing thrombocytopenia with platelet count of 134. BMP showing worsening renal function with BUN of 44.2 and creatinine of 2.4 with GFR of 27. Vital signs reviewed. Blood pressure 104/73, heart rate 82, respiratory rate 16, temp 97.8 F, and SpO2 of 100% on room air. CODE STATUS: Full code DVT prophylaxis: Eliquis Anticipated discharge date: Anticipate discharge within the next 24 to 48 hours pending improvement/stabilization of renal function. Anticipated discharge place: Home versus return to [place] Patient was seen independently by Nurse Pracitioner. This document was prepared using [employer] dictation software. Please allow for errors in fiberglass boat builder, while rare they do occur. Segundo Jordan QUALITY ENGINEER MEDICAL DEVICE rendered care for this patient independently, reviewed the findings and plan as documented in the note above. I did not physically speak with or examine the patient on this date. Monitor Cr Closely. Check UA and ESR/CRP. Hold aldactone until Cr in AM Objective - Vital Signs Vital signs: Vital Signs Temp 97.8 F 09/16/23 06:45 Pulse 82 09/16/23 06:45 Resp 16 09/16/23 06:45 BP 104/73 09/16/23 06:45 Pulse Ox 100 09/16/23 06:45 FiO2 21 09/15/23 09:29 Intake & Output 09/15/23 09/16/23 09/16/23 18:59 06:59 18:59 Weight 82 kg Other: Voiding Method Toilet Toilet - Labs CBC & Chem 7: 09/16/23 06:00 09/16/23 06:00 Labs: Abnormal Lab Results - Last 24 Hours (Table) 09/15/23 Range/Units 06:43 Carbon Dioxide 20.2 L (21.6-31.8) mmol/L Anion Gap 12.80 H (4.00-12.00) mmol/L BUN 37.4 H (9.0-27.0) mg/dL Creatinine 1.9 H (0.6-1.5) mg/dL Est GFR (CKD-EPI) 35 L (>=60) Calcium 8.6 L (8.7-10.3) mg/dL
[2023-09-17 04:48] LABS: Appearance,Urine Clear (Clear); Bacteria,Urine Rare /hpf; Bilirubin,Urine Negative (Negative); Blood,Urine Trace (Negative); Color,Urine Yellow; Glucose,Urine (UA) Negative (Negative); Hyaline Casts,Urine 7 /lpf (0-2); Ketones,Urine Negative (Negative); Leukocyte Esterase,Urine Moderate (Negative); Mucus,Urine Rare /hpf; Nitrite,Urine Negative (Negative); Protein,Urine 1+ (Negative); RBC,Urine 3 /hpf (0-5); Specific Gravity,Urine 1.012 (1.001-1.035); Urobilinogen,Urine <2.0 mg/dL (<2.0); WBC,Urine 17 /hpf (0-5)
[2023-09-17 05:12] LABS: Anisocytosis Moderate; HCT 44.6 % (34.0-46.0); HGB 12.4 gm/dL (11.4-16.0); Hypochromasia Marked; MCH 23.8 pg (25.0-35.0); MCHC 27.9 g/dL (31.0-37.0); MCV 85.4 fL (80.0-100.0); Mean Platelet Volume 10.8; Microcytosis Slight; Platelet Count 136 k/uL (150-450); Poikilocytosis Slight; RBC 5.22 m/uL (3.80-5.40); RDW 20.8 % (11.5-15.5)
[2023-09-17 05:13] LABS: African American GFR (CKD) 30 (>60 ml/min/1.73 sqM); Anion Gap 8 mmol/L; Blood Urea Nitrogen 49 mg/dL (7-17); Calcium 8.6 mg/dL (8.4-10.2); Carbon Dioxide 19 mmol/L (22-30); Chloride 108 mmol/L (98-107); Glucose 90 mg/dL (74-99); Non-African American GFR(CKD) 26 (>60 ml/min/1.73 sqM); Potassium 4.6 mmol/L (3.5-5.1); Sodium 135 mmol/L (137-145)
[2023-09-17 09:23] LABS: Chol/HDL Ratio 5.33 Ratio
--- NOTE | 2023-09-17 17:20 | P.PN ---
Subjective Progress Note Date: 09/17/23 Hospital course: Patient is a 83-year-old female with a past medical history of CHF (unknown type), alcohol abuse, SLE, polysubstance abuse, A-fib on Eliquis, hypertension, hyperlipidemia, chronic kidney disease, asthma, hypothyroidism, and currently experiencing homelessness. She presented to the emergency department on 09/12/2023 from [place] for bilateral lower extremity edema and shortness of breath. She underwent evaluation in the emergency department. Vital signs upon arrival show blood pressure 113/82, heart rate 118, respiratory rate 18, temp 98.0 F, and SpO2 of 98% on room air. EKG completed showing sinus tachycardia at 113 bpm. Chest x-ray showing cardiomegaly but reported negative for acute cardiopulmonary process. Labs completed and reviewed. CBC showing leukocytosis with WBC count of 11.4. BMP showing non-anion gap metabolic acidosis with chloride of 112, bicarb 17, and anion gap of 7 and consistent with known chronic kidney disease with BUN of 37, creatinine 1.26, GFR 56. Magnesium was low at 1.5. Liver profile showing elevated AST of 42 otherwise normal findings. Troponin was 0.015. proBNP was 9100. Coagulation profile showing elevated D- dimer of 1.46. VQ scan was completed showing very low probability for pulmonary emboli. Patient was admitted under our services for CHF exacerbation. Cardiology was consulted. Troponins trended resulting at 0.015, 0.013, and 0.013. Lipid profile unremarkable with exception of low HDL of 27.60. Echocardiogram was completed showing a severely impaired EF of 20% with dilated left ventricle, moderate to severe mitral regurgitation, moderate pulmonary hypertension, dilated right ventricle, and moderate tricuspid regurgitation. Physical exam: Patient seen and fully evaluated at bedside this morning. Patient reports feeling ready to return to [place]. Patient was educated that renal function remains elevated with creatinine of 2.4. Would like to hold Aldactone and lisinopril for an additional day as patient plans to go back to [place] and will not be able to get obtain outpatient labs to follow-up on renal function. Patient in agreement to stay for an additional day to monitor for improvement/stabilization of renal function. Vital signs reviewed and stable. General: Nontoxic, no distress and appears stated age. Derm: Skin warm and dry, normal coloration for ethnicity. Head: Atraumatic, normocephalic and symmetric. Eyes: EOMs intact, no lid lag, and anicteric sclera Mouth: no lip lesions, mucus membranes moist Cardiovascular: regular rate and rhythm with normal S1S2, systolic murmur, positive posterior tibial pulses bilaterally, and cap refill < 2 seconds. Lungs: Respirations even, regular, and unlabored on room air. Lungs CTA bilaterally, no rhonchi, no rales, no wheezing, and no accessory muscle usage. Abdominal: soft, nontender to palpation, no guarding, no appreciable organomegaly Ext: ROM intact. No gross muscle atrophy, no edema, no contractures Neuro: Speech clear, face symmetrical and CN II-XII grossly intact with no noted focal neuro deficits Psych: Alert and oriented to person, place, time, and situation. Appropriate and pleasant affect. Assessment and Plan of Care: Acute on chronic systolic heart failure exacerbation Acute kidney injury on chronic kidney disease Paroxysmal atrial fibrillation Hypertension Hyperlipidemia Polysubstance abuse with alcohol and cocaine SLE -Echocardiogram was completed showing a severely impaired EF of 20% with dilated left ventricle, moderate to severe mitral regurgitation, moderate pulmonary hypertension, dilated right ventricle, and moderate tricuspid regurgitation. -Cardiology evaluated and recommending patient restarted on oral Lasix 40 mg twice daily and clearing patient from cardiac perspective for discharge. -Lisinopril and Aldactone held secondary to acute kidney injury. -Patient to remain on telemetry monitoring -Daily weights and close monitoring of I's and O's -Cardiac diet -Continue cardiac medication regimen with aspirin 81 mg daily, Eliquis 5 mg twice daily, atorvastatin 40 mg nightly, fenofibrate 54 mg nightly, and metoprolol 25 mg daily. -Continued close monitoring of renal function with repeat morning BMP Hypomagnesemia, resolved. Patient to continue Mag-Ox 400 mg twice daily. Hypothyroidism. Continue levothyroxine 25 mcg daily. Anemia of chronic disease Continue ferrous sulfate 325 mg daily. Data reviewed: Morning labs reviewed. CBC showing thrombocytopenia with platelet count of 136. BMP showing continued elevated but stable renal function with BUN of 49 and creatinine of 2.4 with GFR of 30 Vital signs reviewed. Blood pressure 94/70, heart rate 71, respiratory rate 15, temp 97.6 F, and SpO2 of 100% on room air. CODE STATUS: Full code DVT prophylaxis: Eliquis Anticipated discharge date: Anticipate discharge within the next 24 hours if no further elevation or if improvement of renal function. Anticipated discharge place: Home versus return to [place] Patient was seen independently by Nurse Pracitioner. This document was prepared using [employer] dictation software. Please allow for errors in strip tank tender, while rare they do occur. Segundo Jordan ADMINISTRATIVE JUDGE rendered care for this patient independently, reviewed the findings and plan as documented in the note above. Objective - Vital Signs Vital signs: Vital Signs Temp 97.6 F 09/17/23 07:34 Pulse 71 09/17/23 07:34 Resp 15 09/17/23 07:34 BP 94/70 09/17/23 07:34 Pulse Ox 96 09/17/23 07:49 FiO2 21 09/15/23 09:29 Intake & Output 09/16/23 09/17/23 09/17/23 18:59 06:59 18:59 Intake Total 250 Output Total 300 Balance 250 -300 Weight 81.7 kg Intake: Oral 250 Output: Urine 300 Other: Voiding Method Toilet Toilet # Voids 5 # Bowel Movements 1 - Labs CBC & Chem 7: 09/17/23 04:41 09/17/23 04:41 Labs: Abnormal Lab Results - Last 24 Hours (Table) 09/16/23 09/16/23 09/16/23 Range/Units 06:00 06:00 20:14 RBC 5.53 H (4.10-5.20) X 10*6/uL MCV 76.7 L (80.0-97.0) FL MCH 23.3 L (27.0-32.0) pg MCHC 30.4 L (32.0-37.0) g/dL RDW 22.4 H (11.5-14.5) % Plt Count 134 L (140-440) X 10*3/uL NRBC/100 WBC Diff 0.09 H (0.00-0.01) X 10*3/uL Sodium (137-145) mmol/L Chloride (98-107) mmol/L Carbon Dioxide 18.7 L (21.6-31.8) mmol/L Anion Gap 14.30 H (4.00-12.00) mmol/L BUN 44.2 H (9.0-27.0) mg/dL Creatinine 2.4 H (0.6-1.5) mg/dL Est GFR (CKD-EPI) 27 L (>=60) C-Reactive Protein 1.5 H (<1.0) mg/dL Urine Protein (Negative) Urine Blood (Negative) Ur Leukocyte Esterase (Negative) Urine WBC (0-5) /hpf Urine Bacteria (None) /hpf Hyaline Casts (0-2) /lpf Urine Mucus (None) /hpf 09/17/23 09/17/23 09/17/23 Range/Units 04:07 04:41 04:41 RBC (4.10-5.20) X 10*6/uL MCV (80.0-97.0) FL MCH 23.8 L (27.0-32.0) pg MCHC 27.9 L (32.0-37.0) g/dL RDW 20.8 H (11.5-14.5) % Plt Count 136 L (140-440) X 10*3/uL NRBC/100 WBC Diff (0.00-0.01) X 10*3/uL Sodium 135 L (137-145) mmol/L Chloride 108 H (98-107) mmol/L Carbon Dioxide 19 L (21.6-31.8) mmol/L Anion Gap (4.00-12.00) mmol/L BUN 49 H (9.0-27.0) mg/dL Creatinine 2.40 H (0.6-1.5) mg/dL Est GFR (CKD-EPI) (>=60) C-Reactive Protein (<1.0) mg/dL Urine Protein 1+ H (Negative) Urine Blood Trace H (Negative) Ur Leukocyte Esterase Moderate H (Negative) Urine WBC 17 H (0-5) /hpf Urine Bacteria Rare H (None) /hpf Hyaline Casts 7 H (0-2) /lpf Urine Mucus Rare H (None) /hpf
[2023-09-17] MEDS ORDERED: ONDANSETRON 4 MG/2 ML VIAL IVP PRN (20:21)
[2023-09-17] MEDS: ONDANSETRON ODT 4 MG TAB PO STA (21:35)
[2023-09-18 11:22] LABS: Anisocytosis Moderate; HCT 44.3 % (34.0-46.0); HGB 12.2 gm/dL (11.4-16.0); Hypochromasia Marked; MCH 23.6 pg (25.0-35.0); MCHC 27.5 g/dL (31.0-37.0); MCV 85.8 fL (80.0-100.0); Mean Platelet Volume 8.5; Microcytosis Slight; Platelet Count 111 k/uL (150-450); Poikilocytosis Slight; RBC 5.17 m/uL (3.80-5.40); WBC 7.9 k/uL (3.8-10.6)
[2023-09-18 11:31] LABS: African American GFR (CKD) 28 (>60 ml/min/1.73 sqM); Anion Gap 7 mmol/L; Blood Urea Nitrogen 51 mg/dL (7-17); Calcium 8.6 mg/dL (8.4-10.2); Carbon Dioxide 19 mmol/L (22-30); Chloride 107 mmol/L (98-107); Glucose 99 mg/dL (74-99); Magnesium 2.1 mg/dL (1.6-2.3); Non-African American GFR(CKD) 24 (>60 ml/min/1.73 sqM); Sodium 133 mmol/L (137-145)
--- NOTE | 2023-09-18 12:38 | P.NPCON ---
History of Present Illness - Reason for Consult Consult date: 09/18/23 - Chief Complaint SOB - History of Present Illness Patient is a 33yo female presented to ED on 09/12/23 for shortness of breath and leg swelling. She has history of HTN, SLE, Atrial fibrillation, polysubstance abuse. She denies any hostory of kidney disease or ever seeing a kidney doctor. She is currently homeless. She was admitted and seen by cardiology and found to have worsening CHF and started on IV Lasix. Her edema and shortness of breath have mproved and medicaitons were adjusted but developed low BP and kidney failure. Currently today she states she is feeling fine and urinating without issue. She wants to be discharged but understand her kidneys are not doing well. Denies any NSAID use. Vital signs are stable. General: No acute distress. HEENT: Neck supple LUNGS: No audible rhonchi or wheezes. HEART: Rate and Rhythm are regular. ABDOMEN: Nontender. EXTREMITITES: No edema. Review of Systems Constitutional: Reports as per HPI Past Medical History Past Medical History: Atrial Fibrillation, Coronary Artery Disease (CAD), Heart Failure, Hyperlipidemia, Renal Disease Additional Past Medical History / Comment(s): Gout, lupus, chf, uknown arrhythmia History of Any Multi-Drug Resistant Organisms: None Reported Past Surgical History: Section, Pacemaker Past Anesthesia/Blood Transfusion Reactions: No Reported Reaction Type of Cardiac Device: Permanent Pacemaker Device Placement Date:: unknown Past Psychological History: Anxiety, Bipolar Smoking Status: Current every day smoker Past Alcohol Use History: Abuse, Heavy Past Drug Use History: Cocaine Medications and Allergies Home Medications Medication Instructions Recorded Confirmed Type Acetaminophen Tab [Tylenol] 650 mg PO Q4H PRN 09/12/23 09/12/23 History Albuterol Inhaler [Ventolin Hfa 1 - 2 puff INHALATION RT-Q4H PRN 09/12/23 09/12/23 History Inhaler] Apixaban [Eliquis] 5 mg PO BID 09/12/23 09/12/23 History Aspirin 81 mg PO DAILY 09/12/23 09/12/23 History Atorvastatin Calcium [Lipitor] 40 mg PO HS 09/12/23 09/12/23 History FLUoxetine HCL [PROzac] 20 mg PO DAILY 09/12/23 09/12/23 History Fenofibrate [Lofibra] 54 mg PO HS 09/12/23 09/12/23 History Ferrous Sulfate [Iron (65 MG 325 mg PO DAILY 09/12/23 09/12/23 History Elemental)] Hydroxychloroquine Sulfate 200 mg PO BID 09/12/23 09/12/23 History [Plaquenil] Levothyroxine Sodium [Synthroid] 25 mcg PO DAILY 09/12/23 09/12/23 History Lidocaine 5% Oint [Xylocaine 5% 1 applic TOPICAL TID PRN 09/12/23 09/12/23 History Oint] Lurasidone [Latuda] 40 mg PO DAILY 09/12/23 09/12/23 History Magnesium Oxide [Magox 400] 400 mg PO BID 09/12/23 09/12/23 History Melatonin 10 mg PO HS 09/12/23 09/12/23 History Mirtazapine [Remeron] 15 mg PO HS 09/12/23 09/12/23 History Multivitamins, Thera [Multivitamin 1 tab PO DAILY 09/12/23 09/12/23 History (formulary)] Omeprazole 20 mg PO DAILY 09/12/23 09/12/23 History allopurinoL 100 mg PO DAILY 09/12/23 09/12/23 History busPIRone HCl [Buspar] 10 mg PO TID 09/12/23 09/12/23 History guaiFENesin SYRUP 100MG/5ML 200 mg PO Q4H PRN 09/12/23 09/12/23 History [Robitussin] ondansetron HCL [Zofran] 8 mg PO TID 09/12/23 09/12/23 History Furosemide [Lasix] 40 mg PO BID@0900,1600 30 Days #60 09/16/23 Rx tab Metoprolol Succinate (ER) [Toprol 25 mg PO DAILY 30 Days #30 tab 09/16/23 Rx XL] Nitroglycerin Sl Tabs [Nitrostat] 0.4 mg SUBLINGUAL Q5M PRN #30 tab 09/16/23 Rx Spironolactone [Aldactone] 25 mg PO DAILY 30 Days #30 tab 09/16/23 Rx lisinopriL [Zestril] 5 mg PO DAILY 30 Days #30 tab 09/16/23 Rx Allergies Allergy/AdvReac Type Severity Reaction Status Date / Time No Known Allergies Allergy Verified 09/12/23 20:10 Physical Exam Vitals: Vital Signs Temp Pulse Resp BP BP Pulse Ox 09/18/23 08:00 98.2 F 74 16 93/67 100 09/18/23 07:39 95 09/18/23 03:15 97.5 F L 70 15 88/58 99 09/18/23 00:00 97 09/17/23 21:58 69 16 09/17/23 20:03 97.6 F 69 16 103/71 100 09/17/23 14:00 97.9 F 79 16 114/79 98 Intake and Output 09/17/23 09/18/23 09/18/23 22:59 06:59 14:59 Intake Total 300 240 Balance 300 240 Intake: Oral 300 240 Other: Voiding Method Toilet # Voids 1 # Bowel Movements 1 Results - Lab Results Most recent lab results Calcium 8.6 mg/dL (8.4-10.2) 09/18/23 10:52 Magnesium 2.1 mg/dL (1.6-2.3) 09/18/23 10:52 09/18/23 10:52 09/18/23 10:52 Assessment and Plan Plan: Assessment: 1. Non-oliguric BRIANDA 2/2 ATN from low blood pressure along with Lisinorpil, Lasix and Aldactone use. Baseline creatinine 1.2-1.3 mg/dL, presented 1.2, now worsening to 2.5. UA shows hyaline casts, few WBC and mild protein. 2. Acute on Chronic Systolic CHF 3. SLE no reported history of lupus nephritis. 4. HTN with CKD 5. 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 Plan: Agree with holding Lisinorpil and Aldactone give low BP and BRIANDA. Check renal US, bladder scan, strict I/O's May need to consider lower dose of Lasix if BP remains low after holding BP medications Needs further work-up for proteiniuria and lupus nephritis outpatient when renal function improved. Further recommendations pending work-up
--- NOTE | 2023-09-18 13:40 | US ---
EXAMINATION TYPE: US kidneys/renal and bladder DATE OF EXAM: 09/18/2023 COMPARISON: NONE CLINICAL INDICATION: Female, 33 years old with history of BRIANDA EXAM MEASUREMENTS: Right Kidney: 10.8 x 4.0 x 4.3 cm Left Kidney: 9.6 x 4.3 x 4.3 cm Right Kidney: No hydronephrosis. Hypoechoic lesion lower pole = 1.2 x 1.0 x 1.5cm Left Kidney: no evidence of hydronephrosis Bladder: appears wnl Bilateral Jets seen: no *free fluid within pelvis and adjacent to liver IMPRESSION: 1. No hydronephrosis. 2. A hypoechoic lesion in the central lower pole of the right kidney measuring 1.5 cm. Possible cyst with internal echoes due to artifact or debris. 3 month follow-up ultrasound to ensure stability and exclude a small solid mass. 3. Mild abdominopelvic ascites. Correlate as to etiology.
--- NOTE | 2023-09-18 16:57 | P.PN ---
Subjective Progress Note Date: 09/18/23 Hospital course: Patient is a 83-year-old female with a past medical history of CHF (unknown type), alcohol abuse, SLE, polysubstance abuse, A-fib on Eliquis, hypertension, hyperlipidemia, chronic kidney disease, asthma, hypothyroidism, and currently experiencing homelessness. She presented to the emergency department on 09/12/2023 from [place] for bilateral lower extremity edema and shortness of breath. She underwent evaluation in the emergency department. Vital signs upon arrival show blood pressure 113/82, heart rate 118, respiratory rate 18, temp 98.0 F, and SpO2 of 98% on room air. EKG completed showing sinus tachycardia at 113 bpm. Chest x-ray showing cardiomegaly but reported negative for acute cardiopulmonary process. Labs completed and reviewed. CBC showing leukocytosis with WBC count of 11.4. BMP showing non-anion gap metabolic acidosis with chloride of 112, bicarb 17, and anion gap of 7 and consistent with known chronic kidney disease with BUN of 37, creatinine 1.26, GFR 56. Magnesium was low at 1.5. Liver profile showing elevated AST of 42 otherwise normal findings. Troponin was 0.015. proBNP was 9100. Coagulation profile showing elevated D- dimer of 1.46. VQ scan was completed showing very low probability for pulmonary emboli. Patient was admitted under our services for CHF exacerbation. Cardiology was consulted. Troponins trended resulting at 0.015, 0.013, and 0.013. Lipid profile unremarkable with exception of low HDL of 27.60. Echocardiogram was completed showing a severely impaired EF of 20% with dilated left ventricle, moderate to severe mitral regurgitation, moderate pulmonary hypertension, dilated right ventricle, and moderate tricuspid regurgitation. Physical exam: Patient seen and fully evaluated at bedside this morning. Patient is discouraged this morning expressing that she wants to be discharged but is in understanding that her renal function is not improving and it is imperative for close monitoring and evaluation by mortgage loan coordinator. Patient denies having any other complaints at this time. Vital signs reviewed and stable. General: Nontoxic, no distress and appears stated age. Derm: Skin warm and dry, normal coloration for ethnicity. Head: Atraumatic, normocephalic and symmetric. Eyes: EOMs intact, no lid lag, and anicteric sclera Mouth: no lip lesions, mucus membranes moist Cardiovascular: regular rate and rhythm with normal S1S2, systolic murmur, positive posterior tibial pulses bilaterally, and cap refill < 2 seconds. Lungs: Respirations even, regular, and unlabored on room air. Lungs CTA bilaterally, no rhonchi, no rales, no wheezing, and no accessory muscle usage. Abdominal: soft, nontender to palpation, no guarding, no appreciable organomegaly Ext: ROM intact. No gross muscle atrophy, no edema, no contractures Neuro: Speech clear, face symmetrical and CN II-XII grossly intact with no noted focal neuro deficits Psych: Alert and oriented to person, place, time, and situation. Appropriate and pleasant affect. Assessment and Plan of Care: Acute kidney injury on chronic kidney disease -Urinalysis positive for 1+ proteins and trace blood with 3 RBC. ESR normal, CRP midly elevated. Check C3 and C4 -Nephrology consulted as renal function continues to worsen despite discontinuation of IV Lasix and transition to oral Lasix and holding of lisinopril and Aldactone. Need to rule out lupus nephritis -Continue to hold lisinopril and Aldactone. -Will continue Lasix 40 mg twice daily pending further recommendations from mortgage loan coordinator. -Continued close monitoring of I's and O's. Acute on chronic systolic heart failure exacerbation Paroxysmal atrial fibrillation Hypertension Hyperlipidemia Polysubstance abuse with alcohol and cocaine SLE -Echocardiogram was completed showing a severely impaired EF of 20% with dilated left ventricle, moderate to severe mitral regurgitation, moderate pulmonary hypertension, dilated right ventricle, and moderate tricuspid regurgitation. -Cardiology evaluated and recommending patient restarted on oral Lasix 40 mg twice daily and clearing patient from cardiac perspective for discharge. -Lisinopril and Aldactone held secondary to acute kidney injury. -Patient to remain on telemetry monitoring -Daily weights and close monitoring of I's and O's -Cardiac diet -Continue cardiac medication regimen with aspirin 81 mg daily, Eliquis 5 mg twice daily, atorvastatin 40 mg nightly, fenofibrate 54 mg nightly, and metoprolol 25 mg daily. -Continued close monitoring of renal function with repeat morning BMP Hypomagnesemia, resolved. Patient to continue Mag-Ox 400 mg twice daily. Hypothyroidism. Continue levothyroxine 25 mcg daily. Anemia of chronic disease Continue ferrous sulfate 325 mg daily. Data reviewed: Morning labs reviewed. CBC showing thrombocytopenia with platelet count of 111. BMP showing hyponatremia with sodium of 133 and hypocarbia with bicarb of 19. Renal function continues to elevate with BUN of 51 and creatinine of 2.56 and GFR of 24. Magnesium 2.1. Vital signs reviewed. Blood pressure continues to run soft at 93/67, heart rate 74, respiratory rate 18, temp 98.2 F, and SpO2 100% on room air. CODE STATUS: Full code DVT prophylaxis: Eliquis Anticipated discharge date: Anticipate discharge within the next 24 hours if no further elevation or if improvement of renal function. Anticipated discharge place: Home versus return to [facility] Patient was seen independently by Nurse Pracitioner. This document was prepared using Open[employer] dictation software. Please allow for errors in correction worker, while rare they do occur. Segundo Jordan NP rendered care for this patient independently, reviewed the findings and plan as documented in the note above and edited in blue. I did not physically speak with or examine the patient on this date. Objective - Vital Signs Vital signs: Vital Signs Temp 98.2 F 09/18/23 08:00 Pulse 74 09/18/23 08:00 Resp 16 09/18/23 08:00 BP 93/67 09/18/23 08:00 Pulse Ox 100 09/18/23 08:00 FiO2 21 09/15/23 09:29 Intake & Output 09/17/23 09/18/23 09/18/23 18:59 06:59 18:59 Intake Total 300 Balance 300 Weight 81.7 kg Intake: Oral 300 Other: Voiding Method Toilet Toilet # Voids 1 # Bowel Movements 1 - Labs CBC & Chem 7: 09/18/23 10:52 09/18/23 10:52 Labs: Abnormal Lab Results - Last 24 Hours (Table) 09/17/23 Range/Units 04:41 HDL Cholesterol 21.20 L (40.00-60.00) mg/dL
[2023-09-18] MEDS: LURASIDONE 40 MG TAB PO SCH (21:40)
[2023-09-19 10:42] LABS: HCT 40.4 % (37.2-46.3); HGB 12.2 g/dL (12.0-15.0); MCH 23.7 pg (27.0-32.0); MCHC 30.2 g/dL (32.0-37.0); MCV 78.4 FL (80.0-97.0); NRBC Per 100 WBC 0.05 X 10*3/uL (0.00-0.01); Platelet Count 107 X 10*3/uL (140-440); RBC 5.15 X 10*6/uL (4.10-5.20); RDW 21.5 % (11.5-14.5); WBC 8.24 X 10*3/uL (4.50-10.00)
[2023-09-19 11:00] LABS: ALT 26 U/L (8-44); AST 46 U/L (13-35); Albumin 2.6 g/dL (3.8-4.9); Albumin/Globulin Ratio 0.79 Ratio (1.60-3.17); Alkaline Phosphatase 117 U/L (41-126); Blood Urea Nitrogen 48.6 mg/dL (9.0-27.0); Calcium 8.9 mg/dL (8.7-10.3); Carbon Dioxide 19.4 mmol/L (21.6-31.8); Chloride 102 mmol/L (96-109); Globulin 3.3 g/dL (1.6-3.3); Glucose 92 mg/dL (70-110); Magnesium 2.2 mg/dL (1.5-2.4); Potassium 4.8 mmol/L (3.5-5.5); Sodium 136 mmol/L (135-145); Total Bilirubin 0.7 mg/dL (0.3-1.2); Total Protein 5.9 g/dL (6.2-8.2)
--- NOTE | 2023-09-19 12:38 | P.PN ---
Subjective patient is seen for follow-up for acute kidney injury. Patient is admitted to the hospital with fluid overload and CHF exacerbation. Currently being diuresed. patient is homeless. serum creatinine increased from 1.17 on initial admission to 3.0 today. Patient has been voiding. Shortness of breath improved. no hydronephrosis noted on ultrasound of the kidneys. history of SLE with no renal involvement previously. Objective - Vital Signs Vital signs: Vital Signs Temp 97.8 F 09/19/23 08:00 Pulse 73 09/19/23 08:00 Resp 16 09/19/23 08:00 BP 107/64 09/19/23 08:00 Pulse Ox 99 09/19/23 08:00 FiO2 21 09/15/23 09:29 Intake & Output 09/18/23 09/19/23 09/19/23 18:59 06:59 18:59 Intake Total 600 236 Balance 600 236 Weight 82.4 kg Intake: Oral 600 236 Other: Voiding Method Toilet # Voids 2 1 - Exam patient is awake, comfortable, no acute distress Examination of the heart S1 and S2 Examination of the lungs shows decreased breath sounds at the bases Abdomen is soft nontender Examination of lower extremity shows no significant edema TWIST PACKER exam grossly intact - Labs CBC & Chem 7: 09/19/23 06:33 09/19/23 06:33 Labs: Abnormal Lab Results - Last 24 Hours (Table) 09/19/23 09/19/23 Range/Units 06:33 06:33 MCV 78.4 L (80.0-97.0) FL MCH 23.7 L (27.0-32.0) pg MCHC 30.2 L (32.0-37.0) g/dL RDW 21.5 H (11.5-14.5) % Plt Count 107 L (140-440) X 10*3/uL NRBC/100 WBC Diff 0.05 H (0.00-0.01) X 10*3/uL Carbon Dioxide 19.4 L (21.6-31.8) mmol/L Anion Gap 14.60 H (4.00-12.00) mmol/L BUN 48.6 H (9.0-27.0) mg/dL Creatinine 3.0 H (0.6-1.5) mg/dL Est GFR (CKD-EPI) 20 L (>=60) AST 46 H (13-35) U/L Total Protein 5.9 L (6.2-8.2) g/dL Albumin 2.6 L (3.8-4.9) g/dL Albumin/Globulin Ratio 0.79 L (1.60-3.17) Ratio Assessment and Plan Assessment: 1. Non-oliguric BRIANDA 2/2 ATN from low blood pressure along with Lisinorpil, Lasix and Aldactone use. Baseline creatinine 1.2-1.3 mg/dL, presented 1.2, now worsening to 3.0. UA shows hyaline casts, few WBC and mild protein. obtain s erologies. currently being diuresed. No obstruction noted on ultrasound of the kidneys 2. Acute on Chronic Systolic CHF ejection fraction at 20% with severe left atrial allocation and moderate to severe mitral regurgitation 3. SLE no reported history of lupus nephritis. 4. HTN with CKD 5. 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 6. History of polysubstance abuse Plan: check serologies Decrease dose of Lasix Repeat chest x-ray would be cautious with use of hydroxychloroquine if patient does not follow-up for regular eye exams. Repeat labs in a.m.
--- NOTE | 2023-09-19 15:02 | XR ---
EXAMINATION TYPE: XR chest 1V DATE OF EXAM: 09/19/2023 COMPARISON: 09/12/2023 HISTORY: 33-year-old female CHF TECHNIQUE: Single frontal view of the chest is obtained. FINDINGS: Left anterior chest wall implantable cardiac defibrillator generator with midline lead. He art is mildly enlarged. Possible trace bilateral pleural effusions. No veena consolidation. IMPRESSION: Cardiomegaly and possible trace pleural effusions. The interstitium appears to have impr mala compared to 09/12/2023
--- NOTE | 2023-09-19 16:44 | P.PN ---
Subjective Progress Note Date: 09/19/23 Hospital course: Patient is a 83-year-old female with a past medical history of CHF (unknown type), alcohol abuse, SLE, polysubstance abuse, A-fib on Eliquis, hypertension, hyperlipidemia, chronic kidney disease, asthma, hypothyroidism, and currently experiencing homelessness. She presented to the emergency department on 09/12/2023 from [place] for bilateral lower extremity edema and shortness of breath. She underwent evaluation in the emergency department. Vital signs upon arrival show blood pressure 113/82, heart rate 118, respiratory rate 18, temp 98.0 F, and SpO2 of 98% on room air. EKG completed showing sinus tachycardia at 113 bpm. Chest x-ray showing cardiomegaly but reported negative for acute cardiopulmonary process. Labs completed and reviewed. CBC showing leukocytosis with WBC count of 11.4. BMP showing non-anion gap metabolic acidosis with chloride of 112, bicarb 17, and anion gap of 7 and consistent with known chronic kidney disease with BUN of 37, creatinine 1.26, GFR 56. Magnesium was low at 1.5. Liver profile showing elevated AST of 42 otherwise normal findings. Troponin was 0.015. proBNP was 9100. Coagulation profile showing elevated D- dimer of 1.46. VQ scan was completed showing very low probability for pulmonary emboli. Patient was admitted under our services for CHF exacerbation. Cardiology was consulted. Troponins trended resulting at 0.015, 0.013, and 0.013. Lipid profile unremarkable with exception of low HDL of 27.60. Echocardiogram was completed showing a severely impaired EF of 20% with dilated left ventricle, moderate to severe mitral regurgitation, moderate pulmonary hypertension, dilated right ventricle, and moderate tricuspid regurgitation. Patient underwent IV diuresis and was later started on oral Lasix 40 mg twice daily in addition to current cardiac medication regimen. Patient then began having elevated renal function with an acute kidney injury. Despite discontinuation of lisinopril and Aldactone renal function continues to climb daily. Nephrology was consulted to rule out lupus nephritis versus other potential causes of continued elevation of renal function. Urinalysis positive for 1+ proteins and trace blood with 3 RBC. ESR normal, CRP midly elevated at 1.5. C3 124.0 and C4 15.0. Renal ultrasound negative for hydronephrosis showing hyperechoic lesion of the lower pole of right kidney measuring 1.5 cm. Physical exam: Patient seen and fully evaluated at bedside this morning. Patient remains discouraged over hospitalization and current renal function. Patient was hoping to return to [place], however due to extended length of stay in hospital [facility] stated they will not be able to take patient back. Patient now planning to get on a bus to [place] once she is discharged from the hospital. She currently denies having any pain or complaints at this time. Reports having normal urinary output. Vital signs reviewed and stable. General: Nontoxic, no distress and appears stated age. Derm: Skin warm and dry, normal coloration for ethnicity. Head: Atraumatic, normocephalic and symmetric. Eyes: EOMs intact, no lid lag, and anicteric sclera Mouth: no lip lesions, mucus membranes moist Cardiovascular: regular rate and rhythm with normal S1S2, systolic murmur, positive posterior tibial pulses bilaterally, and cap refill < 2 seconds. Lungs: Respirations even, regular, and unlabored on room air. Lungs CTA bilaterally, no rhonchi, no rales, no wheezing, and no accessory muscle usage. Abdominal: soft, nontender to palpation, no guarding, no appreciable organomegaly Ext: ROM intact. No gross muscle atrophy, no edema, no contractures Neuro: Speech clear, face symmetrical and CN II-XII grossly intact with no noted focal neuro deficits Psych: Alert and oriented to person, place, time, and situation. Appropriate and pleasant affect. Assessment and Plan of Care: Acute kidney injury on chronic kidney disease -Urinalysis positive for 1+ proteins and trace blood with 3 RBC. ESR normal, CRP midly elevated at 1.5. C3 124.0 and C4 15.0. -Nephrology consulted as renal function continues to worsen despite discontinuation of IV Lasix and transition to oral Lasix and holding of lisinopril and Aldactone. Need to rule out lupus nephritis versus other causes for continued elevation of renal function -Continue to hold lisinopril and Aldactone. -Will continue Lasix 40 mg twice daily pending further recommendations from html web developer. -Continued close monitoring of I's and O's. Acute on chronic systolic heart failure exacerbation Paroxysmal atrial fibrillation Hypertension Hyperlipidemia Polysubstance abuse with alcohol and cocaine SLE -Echocardiogram was completed showing a severely impaired EF of 20% with dilated left ventricle, moderate to severe mitral regurgitation, moderate pulmonary hypertension, dilated right ventricle, and moderate tricuspid regurgitation. -Cardiology evaluated and recommending patient restarted on oral Lasix 40 mg twice daily and clearing patient from cardiac perspective for discharge. -Lisinopril and Aldactone held secondary to acute kidney injury. -Patient to remain on telemetry monitoring -Daily weights and close monitoring of I's and O's -Cardiac diet -Continue cardiac medication regimen with aspirin 81 mg daily, Eliquis 5 mg twice daily, atorvastatin 40 mg nightly, fenofibrate 54 mg nightly, and metoprolol 25 mg daily. -Continued close monitoring of renal function with repeat morning BMP Hypomagnesemia, resolved. Patient to continue Mag-Ox 400 mg twice daily and magnesium has since been stable. Hypothyroidism. Continue levothyroxine 25 mcg daily. Anemia of chronic disease, hemoglobin stable. Continue ferrous sulfate 325 mg daily. Data reviewed: Morning labs reviewed. CBC showing thrombocytopenia with platelet count of 107. BMP showing continued worsening of renal function with BUN of 48.6 and creatinine of 3.0 and GFR of 20. Magnesium 2.2. Vital signs reviewed. Blood pressure continues to run soft at 93/67, heart rate 74, respiratory rate 18, temp 98.2 F, and SpO2 100% on room air. CODE STATUS: Full code DVT prophylaxis: Eliquis Anticipated discharge date: Clinical course to determine Anticipated discharge place: Clinical course to determine Patient was seen independently by Nurse Pracitioner. This document was prepared using [employer] dictation software. Please allow for errors in engraver seals, while rare they do occur. Segundo Jordan NP rendered care for this patient independently, reviewed the findings and plan as documented in the note above. I did not physically speak with or examine the patient on this date. Objective - Vital Signs Vital signs: Vital Signs Temp 97.5 F L 09/19/23 02:00 Pulse 70 09/19/23 02:00 Resp 16 09/19/23 02:00 BP 103/70 09/19/23 02:00 Pulse Ox 98 09/19/23 02:00 FiO2 21 09/15/23 09:29 Intake & Output 09/18/23 09/19/23 09/19/23 18:59 06:59 18:59 Intake Total 600 236 Balance 600 236 Weight 82.4 kg Intake: Oral 600 236 Other: Voiding Method Toilet # Voids 2 - Labs CBC & Chem 7: 09/19/23 06:33 09/19/23 06:33 Labs: Abnormal Lab Results - Last 24 Hours (Table) 09/18/23 09/18/23 Range/Units 10:52 10:52 MCH 23.6 L (25.0-35.0) pg MCHC 27.5 L (31.0-37.0) g/dL RDW 21.0 H (11.5-15.5) % Plt Count 111 L (150-450) k/uL Sodium 133 L (137-145) mmol/L Carbon Dioxide 19 L (22-30) mmol/L BUN 51 H (7-17) mg/dL Creatinine 2.56 H (0.52-1.04) mg/dL
[2023-09-20 03:11] LABS: Hepatitis B Surface Antigen Nonreactive (Nonreactive); Hepatitis C IgG Antibody Nonreactive (Nonreactive)
[2023-09-20 03:28] LABS: Hepatitis B Surface AB- Quant 8.1 mIU/mL
[2023-09-20 05:46] LABS: DNA Double-Stranded Indetermin (Negative)
[2023-09-20] MEDS: FUROSEMIDE 40 MG TAB PO SCH (09:33)
[2023-09-20 10:11] LABS: African American GFR (CKD) 28 (>60 ml/min/1.73 sqM); Anion Gap 6 mmol/L; Blood Urea Nitrogen 48 mg/dL (7-17); Calcium 8.6 mg/dL (8.4-10.2); Carbon Dioxide 22 mmol/L (22-30); Chloride 108 mmol/L (98-107); Glucose 84 mg/dL (74-99); Non-African American GFR(CKD) 24 (>60 ml/min/1.73 sqM); Potassium 4.8 mmol/L (3.5-5.1); Sodium 136 mmol/L (137-145)
--- NOTE | 2023-09-20 11:23 | P.PN ---
Subjective Progress Note Date: 09/20/23 Hospital course: Patient is a 83-year-old female with a past medical history of CHF (unknown type), alcohol abuse, SLE, polysubstance abuse, A-fib on Eliquis, hypertension, hyperlipidemia, chronic kidney disease, asthma, hypothyroidism, and currently experiencing homelessness. She presented to the emergency department on 09/12/2023 from [place] for bilateral lower extremity edema and shortness of breath. She underwent evaluation in the emergency department. Vital signs upon arrival show blood pressure 113/82, heart rate 118, respiratory rate 18, temp 98.0 F, and SpO2 of 98% on room air. EKG completed showing sinus tachycardia at 113 bpm. Chest x-ray showing cardiomegaly but reported negative for acute cardiopulmonary process. Labs completed and reviewed. CBC showing leukocytosis with WBC count of 11.4. BMP showing non-anion gap metabolic acidosis with chloride of 112, bicarb 17, and anion gap of 7 and consistent with known chronic kidney disease with BUN of 37, creatinine 1.26, GFR 56. Magnesium was low at 1.5. Liver profile showing elevated AST of 42 otherwise normal findings. Troponin was 0.015. proBNP was 9100. Coagulation profile showing elevated D- dimer of 1.46. VQ scan was completed showing very low probability for pulmonary emboli. Patient was admitted under our services for CHF exacerbation. Cardiology was consulted. Troponins trended resulting at 0.015, 0.013, and 0.013. Lipid profile unremarkable with exception of low HDL of 27.60. Echocardiogram was completed showing a severely impaired EF of 20% with dilated left ventricle, moderate to severe mitral regurgitation, moderate pulmonary hypertension, dilated right ventricle, and moderate tricuspid regurgitation. Patient underwent IV diuresis and was later started on oral Lasix 40 mg twice daily in addition to current cardiac medication regimen. Patient then began having elevated renal function with an acute kidney injury. Despite discontinuation of lisinopril and Aldactone renal function continues to climb daily. Nephrology was consulted to rule out lupus nephritis versus other potential causes of continued elevation of renal function. Urinalysis positive for 1+ proteins and trace blood with 3 RBC. ESR normal, CRP midly elevated at 1.5. C3 124.0 and C4 15.0. Renal ultrasound negative for hydronephrosis showing hyperechoic lesion of the lower pole of right kidney measuring 1.5 cm. Physical exam: Patient seen and fully evaluated at bedside this morning. She remains free from any pain or complaints at this time. Patient discussing that she is planning to go to [place] once discharged. Renal function beginning to improve likely discharge within the next 24 to 48 hours. Vital signs reviewed and stable. General: Nontoxic, no distress and appears stated age. Derm: Skin warm and dry, normal coloration for ethnicity. Head: Atraumatic, normocephalic and symmetric. Eyes: EOMs intact, no lid lag, and anicteric sclera Mouth: no lip lesions, mucus membranes moist Cardiovascular: regular rate and rhythm with normal S1S2, systolic murmur, positive posterior tibial pulses bilaterally, and cap refill < 2 seconds. Lungs: Respirations even, regular, and unlabored on room air. Lungs CTA bilaterally, no rhonchi, no rales, no wheezing, and no accessory muscle usage. Abdominal: soft, nontender to palpation, no guarding, no appreciable organomegaly Ext: ROM intact. No gross muscle atrophy, no edema, no contractures Neuro: Speech clear, face symmetrical and CN II-XII grossly intact with no noted focal neuro deficits Psych: Alert and oriented to person, place, time, and situation. Appropriate and pleasant affect. Assessment and Plan of Care: Acute kidney injury on chronic kidney disease -Urinalysis positive for 1+ proteins and trace blood with 3 RBC. ESR normal, CRP midly elevated at 1.5. C3 124.0 and C4 15.0. -Nephrology following, reviewed documentation in chart -Continue to hold lisinopril and Aldactone. -Furosemide was decreased to 40 mg daily and renal function starting to slowly improve. -Continued close monitoring of I's and O's. Acute on chronic systolic heart failure exacerbation Paroxysmal atrial fibrillation Hypertension Hyperlipidemia Polysubstance abuse with alcohol and cocaine SLE -Echocardiogram was completed showing a severely impaired EF of 20% with dilated left ventricle, moderate to severe mitral regurgitation, moderate pulmonary hypertension, dilated right ventricle, and moderate tricuspid regurgitation. -Cardiology evaluated and recommending patient restarted on oral Lasix and clearing patient from cardiac perspective for discharge. -Lisinopril and Aldactone held secondary to acute kidney injury. -Patient to remain on telemetry monitoring -Daily weights and close monitoring of I's and O's -Cardiac diet -Continue cardiac medication regimen with aspirin 81 mg daily, Eliquis 5 mg twice daily, atorvastatin 40 mg nightly, fenofibrate 54 mg nightly, and metoprolol 25 mg daily. -Continued close monitoring of renal function with repeat morning BMP Hypomagnesemia, resolved. Patient to continue Mag-Ox 400 mg twice daily and magnesium has since been stable. Hypothyroidism. Continue levothyroxine 25 mcg daily. Anemia of chronic disease, hemoglobin stable. Continue ferrous sulfate 325 mg daily. Data reviewed: Morning labs reviewed. BMP showing improvement of renal function with BUN of 48, creatinine 2.53, and GFR of 24. Vital signs reviewed. Blood pressure 101/69, heart rate 74, respiratory rate 15, temp 97.8 F, and SpO2 of 99% on room air. CODE STATUS: Full code DVT prophylaxis: Eliquis Anticipated discharge date: Clinical course to determine Anticipated discharge place: Clinical course to determine Patient was seen independently by Nurse Pracitioner. This document was prepared using Sealed dictation software. Please allow for errors in ingot header, while rare they do occur. Segundo Jordan NP rendered care for this patient independently, reviewed the fin dings and plan as documented in the note above. I did not physically speak with or examine the patient on this date. Segundo Jordan NP rendered care for this patient independently, reviewed the findings and plan as documented in the note above. I did not physically speak with or examine the patient on this date. Objective - Vital Signs Vital signs: Vital Signs Temp 97.8 F 09/20/23 07:29 Pulse 74 09/20/23 07:29 Resp 15 09/20/23 07:29 BP 101/69 09/20/23 07:29 Pulse Ox 99 09/20/23 07:29 FiO2 21 09/15/23 09:29 Intake & Output 09/19/23 09/20/23 09/20/23 18:59 06:59 18:59 Weight 81.9 kg Other: Voiding Method Toilet # Voids 1 - Labs CBC & Chem 7: 09/20/23 11:31 09/20/23 09:39 Labs: Abnormal Lab Results - Last 24 Hours (Table) 09/19/23 09/20/23 Range/Units 06:33 09:39 Sodium 136 L (137-145) mmol/L Chloride 108 H (98-107) mmol/L BUN 48 H (7-17) mg/dL Creatinine 2.53 H (0.52-1.04) mg/dL Double Strand DNA Ab Indetermin A (Negative)
[2023-09-20] MEDS ORDERED: HYDROcodone/APAP 5-325MG 1 EACH TAB ONE (11:28)
--- NOTE | 2023-09-20 13:04 | P.PN ---
Subjective patient is seen for follow-up for acute kidney injury. Patient is admitted to the hospital with fluid overload and CHF exacerbation. Currently being diuresed. patient is homeless. serum creatinine increased from 1.17 on initial admission to 3.0 yesterday. Lasix dose was decreased yesterday and creatinine is down to 2.5 today. Patient has been voiding. Shortness of breath improved. no hydronephrosis noted on ultrasound of the kidneys. history of SLE with no renal involvement previously. serologies were ordered. Compliments are not low and [id number] DNA is indeterminate Objective - Vital Signs Vital signs: Vital Signs Temp 97.8 F 09/20/23 07:29 Pulse 74 09/20/23 07:29 Resp 15 09/20/23 07:29 BP 101/69 09/20/23 07:29 Pulse Ox 99 09/20/23 07:29 FiO2 21 09/15/23 09:29 Intake & Output 09/19/23 09/20/23 09/20/23 18:59 06:59 18:59 Weight 81.9 kg Other: Voiding Method Toilet # Voids 1 - Exam patient is awake, comfortable, no acute distress Examination of the heart S1 and S2 Examination of the lungs shows decreased breath sounds at the bases Abdomen is soft nontender Examination of lower extremity shows trace edema ARTILLERY SPECIALIST exam grossly intact - Labs CBC & Chem 7: 09/19/23 06:33 09/20/23 09:39 Labs: Abnormal Lab Results - Last 24 Hours (Table) 09/19/23 09/20/23 Range/Units 06:33 09:39 Sodium 136 L (137-145) mmol/L Chloride 108 H (98-107) mmol/L BUN 48 H (7-17) mg/dL Creatinine 2.53 H (0.52-1.04) mg/dL Double Strand DNA Ab Indetermin A (Negative) Assessment and Plan Assessment: 1. Non-oliguric BRIANDA 2/2 ATN from low blood pressure along with Lisinorpil, Lasix and Aldactone use. Baseline creatinine 1.2-1.3 mg/dL, presented 1.2,worsened to 3.0 and decreased to 2.5 after decreasing dose of Lasix. UA shows hyaline casts, few WBC and mild protein. obtain serologies. currently being diuresed. No obstruction noted on ultrasound of the kidneys 2. Acute on Chronic Systolic CHF ejection fraction at 20% with severe left atrial allocation and moderate to severe mitral regurgitation 3. SLE no reported history of lupus nephritis. 4. HTN with CKD 5. 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 6. History of polysubstance abuse Plan: continue with decreased dose of Lasix Repeat chest x-ray shows improved aeration. Patient needs to follow-up with rheumatology post discharge. would be cautious with use of hydroxychloroquine if patient does not follow-up for regular eye exams. Repeat labs in a.m.
[2023-09-20 13:06] LABS: Anisocytosis Moderate; HCT 45.5 % (34.0-46.0); HGB 12.5 gm/dL (11.4-16.0); Hypochromasia Marked; MCH 23.4 pg (25.0-35.0); MCHC 27.3 g/dL (31.0-37.0); MCV 85.6 fL (80.0-100.0); Mean Platelet Volume 11.2; Microcytosis Slight; Platelet Count 132 k/uL (150-450); Poikilocytosis Slight; RBC 5.32 m/uL (3.80-5.40); RDW 20.8 % (11.5-15.5); WBC 7.7 k/uL (3.8-10.6)
--- NOTE | 2023-09-20 14:09 | P.PN ---
Subjective Progress Note Date: 09/20/23 HISTORY OF PRESENT ILLNESS: The patient is a pleasant 33-year-old -Swedish female patient with a past medical history significant for history of cocaine use and history of alcohol use currently she is in the rehabilitation facility last time she drank alcohol was about 30 days ago as well as history of cardiomyopathy of unknown type she does have an AICD as well as hypertension and dyslipidemia and history of systemic lupus erythematosus as well as multiple comorbid conditions. The patient was not seen by a colorist dyer for the last several years. She presented to the hospital with shortness of breath which has somewhat progressed for the last several days but started about 4 weeks ago associated with bilateral lower extremities edema and also intermittent episodes of chest discomfort. No dizziness or lightheadedness and no feeling of heart racing or fluttering and no presyncope or syncope. She underwent further investigation including an EKG showed sinus mechanism with sinus tachycardia and diffuse nonspecific ST and T wave abnormalities. D-dimer came in to be elevated and subsequently she underwent a VQ scan still pending. Troponin came in to be unremarkable. Creatinine is abnormal. Beside that she underwent a chest x-ray did not show any acute abnormalities. NT proBNP came in to elevated at 8000. She was started on Lasix at this point. She is feeling somewhat better. The examination is remarkable for regular rhythm with a distant heart sounds and systolic murmur and bilateral expiratory wheezing and also bilateral lower extremities edema 09/14/2023 Patient examined this morning at bedside. Patient reports her breathing feels improved this morning. She still continues to have lower extremity edema. She remains on IV Lasix. Echocardiogram completed revealing ejection fraction 20%, severely increased left ventricular mass, mildly increased septal wall thickness, moderately increased posterior wall thickness, severely decreased fractional shortening, severely decreased mid wall fractioning shortening, moderately increased left ventricular diastolic diameter, severely increased left ventricular diastolic volume, severely increased left ventricular systolic volume, severely decreased left ventricular ejection fraction, moderate to severe MR, trace AR, moderate TR 09/15/2023 Patient examined this morning. Patient states she is feeling much better today. She denies chest pain or pressure. She currently denies shortness of breath. She continues to have lower extremity edema although improved. She remains on IV diuretics. Kidney function from this morning is currently pending. Records obtained from [facility] revealing that patient had a previous ejection fraction of 30% and also documented nonischemic cardiomyopathy. 09/16/2023 Patient examined this morning the bedside. Patient denies chest pain or pressure. She denies shortness of breath. Vital signs are stable. She remains on IV Lasix. Kidney function from this morning is currently pending. 09/19 We have been re-consulted for cardiomyopathy. Patient denies having any chest pain or chest pressure no shortness of breath. Blood pressure 101/69, heart rate 74, pulse ox 99% on room air. Repeat blood work reveals hemoglobin 12.5. Sodium 136, potassium 4.8, BUN 48 creatinine 2.53. She states that on discharge she is planning to move to [place] where she will be established with a colorist dyer. PHYSICAL EXAM: VITAL SIGNS: Reviewed. GENERAL: Well-developed in no acute distress. NECK: Supple. No JVD or thyromegaly LUNGS: Respirations even and unlabored. Lungs essentially clear to auscultation bilaterally. HEART: Regular rate and rhythm. S1 and S2 heard. Systolic murmur EXTREMITIES: Normal range of motion. No clubbing or cyanosis. Peripheral p ulses intact. 1+ bilateral lower extremity edema ASSESSMENT: Shortness of breath Acute on chronic heart failure with reduced EF, 20% History of cardiomyopathy status post AICD, nonischemic Chronic kidney disease History of alcohol abuse History of cocaine use Hypertension Hyperlipidemia History of systemic lupus erythematosus Moderate to severe mitral regurgitation, likely secondary to cardiomyopathy Moderate pulmonary hypertension Paroxysmal atrial fibrillation, on Eliquis outpatient Nicotine dependence PLAN: Continue oral Lasix per nephrology Continue additional cardiac medications Patient may be discharged today from a cardiac standpoint No further cardiac workup is planned. Patient has agreed that she will establish with cardiology in [place]. Nurse practitioner note has been reviewed by physician. Signing provider agrees with the documented findings, assessment, and plan of care documented by HERBARIUM CURATOR as a scribe. Objective - Vital Signs Vital signs: Vital Signs Temp 97.8 F 09/20/23 07:29 Pulse 74 09/20/23 07:29 Resp 15 09/20/23 07:29 BP 101/69 09/20/23 07:29 Pulse Ox 99 09/20/23 07:29 FiO2 21 09/15/23 09:29 Intake & Output 09/19/23 09/20/23 09/20/23 18:59 06:59 18:59 Weight 81.9 kg Other: Voiding Method Toilet # Voids 1 - Labs CBC & Chem 7: 09/20/23 11:31 09/20/23 09:39 Labs: Abnormal Lab Results - Last 24 Hours (Table) 09/19/23 09/20/23 Range/Units 06:33 09:39 Sodium 136 L (137-145) mmol/L Chloride 108 H (98-107) mmol/L BUN 48 H (7-17) mg/dL Creatinine 2.53 H (0.52-1.04) mg/dL Double Strand DNA Ab Indetermin A (Negative)
[2023-09-21 08:03] VITALS: BP 103/72; PULSE 75; RESP 15; TEMP 97.6
[2023-09-21 12:44] LABS: ALT 51 U/L (4-34); African American GFR (CKD) 30 (>60 ml/min/1.73 sqM); Albumin 2.6 g/dL (3.5-5.0); Albumin/Globulin Ratio 0.7; Anion Gap 5 mmol/L; Blood Urea Nitrogen 45 mg/dL (7-17); Calcium 8.5 mg/dL (8.4-10.2); Carbon Dioxide 24 mmol/L (22-30); Chloride 105 mmol/L (98-107); Globulin 3.8 g/dL; Glucose 134 mg/dL (74-99); Non-African American GFR(CKD) 26 (>60 ml/min/1.73 sqM); Sodium 134 mmol/L (137-145); Total Bilirubin 1.1 mg/dL (0.2-1.3); Total Protein 6.4 g/dL (6.3-8.2)
[2023-09-21 12:50] LABS: AST 93 U/L (14-36); Alkaline Phosphatase 128 U/L (38-126)
--- NOTE | 2023-09-21 15:25 | P.DS ---
Providers Date of admission: 09/15/23 09:18 Expected date of discharge: 09/21/23 Attending physician: Rosalina Ang MD Consults: 09/18/23 11:50 Consult Physician Routine Consulting Provider: Michael Godinez Consult Reason/Comments: elevated BUN, CR Do you want consulting provider notified?: Yes 09/20/23 09:52 Consult Physician Routine Consulting Provider: Kenya Araujo Consult Reason/Comments: CARDIOMYOPATHY Do you want consulting provider notified?: Yes Primary care physician: Stated None Hospital Course: Discharge Diagnosis: Acute on chronic systolic heart failure exacerbation. Echocardiogram was completed showing a severely impaired EF of 20% with dilated left ventricle, moderate to severe mitral regurgitation, moderate pulmonary hypertension, dilated right ventricle, and moderate tricuspid regurgitation. Acute kidney injury on chronic kidney disease. Proving after decreasing dose of oral Lasix and discontinuation of lisinopril and Aldactone. Renal function is still elevated with creatinine of 2.41 on discharge and patient was strongly advised that she will need to follow-up with the speech language therapist, electric distribution checker, agricultural engineering technicians, and PCP once she gets to [place]. Paroxysmal atrial fibrillation. Hypertension Hyperlipidemia Polysubstance abuse with alcohol and cocaine SLE Hypomagnesemia, resolved Hypothyroidism. Continue levothyroxine 25 mcg daily. Anemia of chronic disease, hemoglobin stable. Continue ferrous sulfate 325 mg daily. Hospital course: Patient is a 83-year-old female with a past medical history of CHF (unknown type), alcohol abuse, SLE, polysubstance abuse, A-fib on Eliquis, hypertension, hyperlipidemia, chronic kidney disease, asthma, hypothyroidism, and currently experiencing homelessness. She presented to the emergency department on 09/12/2023 from [place] for bilateral lower extremity edema and shortness of breath. She underwent evaluation in the emergency department. Vital signs upon arrival show blood pressure 113/82, heart rate 118, respiratory rate 18, temp 98.0 F, and SpO2 of 98% on room air. EKG completed showing sinus tachycardia at 113 bpm. Chest x-ray showing cardiomegaly but reported negative for acute cardiopulmonary process. Labs completed and reviewed. CBC showing leukocytosis with WBC count of 11.4. BMP showing non-anion gap metabolic acidosis with chloride of 112, bicarb 17, and anion gap of 7 and consistent with known chronic kidney disease with BUN of 37, creatinine 1.26, GFR 56. Magnesium was low at 1.5. Liver profile showing elevated AST of 42 otherwise normal findings. Troponin was 0.015. proBNP was 9100. Coagulation profile showing elevated D- dimer of 1.46. VQ scan was completed showing very low probability for pulmonary emboli. Patient was admitted under our services for CHF exacerbation. Cardiology was consulted. Troponins trended resulting at 0.015, 0.013, and 0.013. Lipid profile unremarkable with exception of low HDL of 27.60. Echocardiogram was completed showing a severely impaired EF of 20% with dilated left ventricle, moderate to severe mitral regurgitation, moderate pulmonary hypertension, dilated right ventricle, and moderate tricuspid regurgitation. Patient underwent IV diuresis and was later started on oral Lasix 40 mg twice daily in addition to current cardiac medication regimen. Patient then began having elevated renal function with an acute kidney injury. Despite discontinuation of lisinopril and Aldactone renal function continues to climb daily. Nephrology was consulted to rule out lupus nephritis versus other potential causes of continued elevation of renal function. Urinalysis positive for 1+ proteins and trace blood with 3 RBC. ESR normal, CRP midly elevated at 1.5. C3 124.0 and C4 15.0. Renal ultrasound negative for hydronephrosis showing hyperechoic lesion of the lower pole of right kidney measuring 1.5 cm. Physical exam: Patient seen and fully evaluated at bedside this morning. She remains free from any pain or complaints at this time. Patient discussing that she is planning to go to [place] once discharged. Renal function beginning to improve likely discharge within the next 24 to 48 hours. Vital signs reviewed and stable. General: Nontoxic, no distress and appears stated age. Derm: Skin warm and dry, normal coloration for ethnicity. Head: Atraumatic, normocephalic and symmetric. Eyes: EOMs intact, no lid lag, and anicteric sclera Mouth: no lip lesions, mucus membranes moist Cardiovascular: regular rate and rhythm with normal S1S2, systolic murmur, positive posterior tibial pulses bilaterally, and cap refill < 2 seconds. Lungs: Respirations even, regular, and unlabored on room air. Lungs CTA bilaterally, no rhonchi, no rales, no wheezing, and no accessory muscle usage. Abdominal: soft, nontender to palpation, no guarding, no appreciable organom egaly Ext: ROM intact. No gross muscle atrophy, no edema, no contractures Neuro: Speech clear, face symmetrical and CN II-XII grossly intact with no noted focal neuro deficits Psych: Alert and oriented to person, place, time, and situation. Appropriate and pleasant affect. A total of 35 minutes of time were spent preparing this complex discharge summary. Pt was discharged on 09/21/23 at 11:59 AM. Patient was seen independently by Nurse Practitioner. This document was prepared using Backchat dictation software. Please allow for errors in estate agent while rare they do occur. Segundo Jordan NP rendered care for this patient independently, reviewed the findings and plan as documented in the note above. I did not physically speak with or examine the patient on this date. Patient Condition at Discharge: Stable Plan - Discharge Summary Discharge Rx Participant: Yes New Discharge Prescriptions: New Furosemide [Lasix] 40 mg PO DAILY 30 Days #30 tab Metoprolol Succinate [Metoprolol Succinate ER] 25 mg PO DAILY 30 Days #30 tab Nitroglycerin Sl Tabs [Nitrostat] 0.4 mg SUBLINGUAL Q5M PRN #25 tab PRN Reason: Chest Pain Continue Mirtazapine [Remeron] 15 mg PO HS Acetaminophen Tab [Tylenol] 650 mg PO Q4H PRN PRN Reason: Fever And/ Or Pain busPIRone HCl [Buspar] 10 mg PO TID Hydroxychloroquine Sulfate [Plaquenil] 200 mg PO BID FLUoxetine HCL [PROzac] 20 mg PO DAILY Omeprazole 20 mg PO DAILY Magnesium Oxide [Magox 400] 400 mg PO BID Lurasidone [Latuda] 40 mg PO DAILY Lidocaine 5% Oint [Xylocaine 5% Oint] 1 applic TOPICAL TID PRN PRN Reason: low back pain Multivitamins, Thera [Multivitamin (formulary)] 1 tab PO DAILY Aspirin 81 mg PO DAILY allopurinoL 100 mg PO DAILY ondansetron HCL [Zofran] 8 mg PO TID guaiFENesin SYRUP 100MG/5ML [Robitussin] 200 mg PO Q4H PRN PRN Reason: Cough Melatonin 10 mg PO HS Fenofibrate [Lofibra] 54 mg PO HS Levothyroxine Sodium [Synthroid] 25 mcg PO DAILY Ferrous Sulfate [Iron (65 MG Elemental)] 325 mg PO DAILY Apixaban [Eliquis] 5 mg PO BID Atorvastatin Calcium [Lipitor] 40 mg PO HS Albuterol Inhaler [Ventolin Hfa Inhaler] 1 - 2 puff INHALATION RT-Q4H PRN PRN Reason: Shortness Of Breath Discontinued lisinopriL [Prinivil] 10 mg PO DAILY Furosemide [Lasix] 40 mg PO DAILY Discharge Medication List Acetaminophen Tab [Tylenol] 650 mg PO Q4H PRN 09/12/23 [History] Albuterol Inhaler [Ventolin Hfa Inhaler] 1 - 2 puff INHALATION RT-Q4H PRN 09/12/23 [History] Apixaban [Eliquis] 5 mg PO BID 09/12/23 [History] Aspirin 81 mg PO DAILY 09/12/23 [History] Atorvastatin Calcium [Lipitor] 40 mg PO HS 09/12/23 [History] FLUoxetine HCL [PROzac] 20 mg PO DAILY 09/12/23 [History] Fenofibrate [Lofibra] 54 mg PO HS 09/12/23 [History] Ferrous Sulfate [Iron (65 MG Elemental)] 325 mg PO DAILY 09/12/23 [History] Hydroxychloroquine Sulfate [Plaquenil] 200 mg PO BID 09/12/23 [History] Levothyroxine Sodium [Synthroid] 25 mcg PO DAILY 09/12/23 [History] Lidocaine 5% Oint [Xylocaine 5% Oint] 1 applic TOPICAL TID PRN 09/12/23 [History] Lurasidone [Latuda] 40 mg PO DAILY 09/12/23 [History] Magnesium Oxide [Magox 400] 400 mg PO BID 09/12/23 [History] Melatonin 10 mg PO HS 09/12/23 [History] Mirtazapine [Remeron] 15 mg PO HS 09/12/23 [History] Multivitamins, Thera [Multivitamin (formulary)] 1 tab PO DAILY 09/12/23 [History] Omeprazole 20 mg PO DAILY 09/12/23 [History] allopurinoL 100 mg PO DAILY 09/12/23 [History] busPIRone HCl [Buspar] 10 mg PO TID 09/12/23 [History] guaiFENesin SYRUP 100MG/5ML [Robitussin] 200 mg PO Q4H PRN 09/12/23 [History] ondansetron HCL [Zofran] 8 mg PO TID 09/12/23 [History] Furosemide [Lasix] 40 mg PO DAILY 30 Days #30 tab 09/21/23 [Rx] Metoprolol Succinate [Metoprolol Succinate ER] 25 mg PO DAILY 30 Days #30 tab 09/21/23 [Rx] Nitroglycerin Sl Tabs [Nitrostat] 0.4 mg SUBLINGUAL Q5M PRN #25 tab 09/21/23 [Rx] Follow up Appointment(s)/Referral(s): Song Daniel MD [STAFF PHYSICIAN] - 1 Week Di Thompson III, MD [STAFF PHYSICIAN] - 1 Week Patient Instructions/Handouts: Chest Pain (DC) Activity/Diet/Wound Care/Special Instructions: Activity: As tolerated. Take breaks as needed. Diet: Heart healthy and carb consistent diet. Avoid salts, or foods with hidden salts such as canned or boxed foods and frozen dinners. Extra salt makes your heart work harder and traps the fluid in your body for longer. Special Instructions: It is important to establish care and be seen by a primary care provider, electric distribution checker, speech language therapist, business technology architect once you get to [place]. Please notify them of your recent hospitalization, your cardiac ejection fraction of 20% and need for close monitoring. Would be cautious with use of hydroxychloroquine if you do not follow-up for regular eye exams. Thank you for allowing us to participate in your care, it was truly a pleasure having you for our patient!!! Discharge/Stand Alone Forms: AA Meetings [facility], [facility], Outpatient Counseling, Inp Substance Abuse Facilities Discharge Disposition: HOME SELF-CARE
--- NOTE | 2023-09-21 19:23 | P.PN ---
Subjective patient is seen for follow-up for acute kidney injury. Patient is admitted to the hospital with fluid overload and CHF exacerbation. Currently being diuresed. patient is homeless. Renal function has been improving. no hydronephrosis noted on ultrasound of the kidneys. history of SLE with no renal involvement previously. serologies were ordered. Compliments are not low and [id number] DNA is indeterminate Objective - Vital Signs Vital signs: Vital Signs Temp 97.6 F 09/21/23 07:58 Pulse 75 09/21/23 07:58 Resp 15 09/21/23 07:58 BP 103/72 09/21/23 07:58 Pulse Ox 100 09/21/23 07:58 FiO2 21 09/15/23 09:29 Intake & Output 09/21/23 09/21/23 09/22/23 06:59 18:59 06:59 Intake Total 472 Balance 472 Weight 81.7 kg Intake: Oral 472 Other: # Voids 3 2 - Exam patient is awake, comfortable, no acute distress Examination of the heart S1 and S2 Examination of the lungs shows decreased breath sounds at the bases Abdomen is soft nontender Examination of lower extremity shows trace edema WELDING MACHINE OPERATOR SUBMERGED ARC exam grossly intact - Labs CBC & Chem 7: 09/20/23 11:31 09/21/23 11:48 Labs: Abnormal Lab Results - Last 24 Hours (Table) 09/21/23 Range/Units 11:48 Sodium 134 L (137-145) mmol/L BUN 45 H (7-17) mg/dL Creatinine 2.41 H (0.52-1.04) mg/dL Glucose 134 H (74-99) mg/dL AST 93 H (14-36) U/L ALT 51 H (4-34) U/L Alkaline Phosphatase 128 H (38-126) U/L Albumin 2.6 L (3.5-5.0) g/dL Assessment and Plan Assessment: 1. Non-oliguric BRIANDA 2/2 ATN from low blood pressure along with Lisinorpil, Lasix and Aldactone use. Baseline creatinine 1.2-1.3 mg/dL, presented 1.2,worsened to 3.0 and decreased to 2.5 after decreasing dose of Lasix. UA shows hyaline casts, few WBC and mild protein. obtain serologies. currently being diuresed. No obstruction noted on ultrasound of the kidneys 2. Acute on Chronic Systolic CHF ejection fraction at 20% with severe left atrial dilatation and moderate to severe mitral regurgitation 3. SLE no reported history of lupus nephritis. 4. HTN with CKD 5. 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 REMBERTO is positive with [id number] DNA. Patient makes outpatient with rheumatology 6. History of polysubstance abuse Plan: continue with decreased dose of Lasix Patient needs to follow-up with rheumatology post discharge. would be cautious with use of hydroxychloroquine if patient does not follow-up for regular eye exams.
== END 2023-09-21 14:00 | disposition home or self-care (01) | DRG 194 ==
LOC: EC 17:55 → 6NMEDSUR 21:24 → 1SOBS 09-13 10:06 → 6NMEDSUR 09-14 14:00 → OBSVTOIN 09-15 09:18 → 6NMEDSUR 09-16 05:07
PROVIDERS: ADMIT Internal Medicine; ATTEND Internal Medicine
DX: I13.0 Hypertensive heart and chronic kidney disease with heart failure and stage 1 through stage 4 chronic kidney disease, or unspecified chronic kidney disease (principal); E03.9 Hypothyroidism, unspecified; N18.31 Chronic kidney disease, stage 3a; I50.23 Acute on chronic systolic (congestive) heart failure; N17.9 Acute kidney failure, unspecified; D63.1 Anemia in chronic kidney disease; E78.5 Hyperlipidemia, unspecified; E83.42 Hypomagnesemia; F14.10 Cocaine abuse, uncomplicated; F10.10 Alcohol abuse, uncomplicated; F19.10 Other psychoactive substance abuse, uncomplicated; F17.200 Nicotine dependence, unspecified, uncomplicated; F31.9 Bipolar disorder, unspecified; F41.9 Anxiety disorder, unspecified; N17.0 Acute kidney failure with tubular necrosis; I08.1 Rheumatic disorders of both mitral and tricuspid valves; R74.01 Elevation of levels of liver transaminase levels; M10.9 Gout, unspecified; I25.10 Atherosclerotic heart disease of native coronary artery without angina pectoris; Z79.01 Long term (current) use of anticoagulants; M32.9 Systemic lupus erythematosus, unspecified; R79.89 Other specified abnormal findings of blood chemistry; I27.20 Pulmonary hypertension, unspecified; I42.8 Other cardiomyopathies; I48.0 Paroxysmal atrial fibrillation; Z59.00 Homelessness unspecified; Z79.82 Long term (current) use of aspirin; Z79.890 Hormone replacement therapy; Z79.899 Other long term (current) drug therapy; Z95.810 Presence of automatic (implantable) cardiac defibrillator
CPT/HCPCS: 36415; 71045; 71046; 76770; 78582; 80048; 80053; 80061; 81001; 83516; 83690; 83735; 83880; 84484; 85025; 85027; 85379; 85610; 85652; 85730; 86038; 86140; 86160; 86225; 86334; 86335; 86706; 86803; 87340; 93005; 93306; 94760; 96365; 96366; 96375; 99285